=== PATIENT | female | born 1990 | race Caucasian/White ===

== ENCOUNTER → 2019-10-04 17:27 | Outpatient (CLI) | payer OTHER, SELFPAY ==
[2019-10-11 07:41] LABS: Neisseria gonorrhoeae, NAA Negative (Negative)
== END ==
PROVIDERS: Visit Provider Physician Assistant
DX: A74.9 Chlamydial infection, unspecified (principal)
CPT/HCPCS: 87491; 87591

== ENCOUNTER 2019-11-08 18:37 | Emergency (ER) | payer OTHER, SELFPAY ==
[2019-11-08 18:56] VITALS: BP 132/97; PULSE 74; RESP 20; TEMP 36.7; O2SAT 100; BMI 19.5
--- NOTE | 2019-11-08 19:23 | HMH.EDUTC ---
[facility] [place] Disposition Clinical Impression: Swelling of both lips Disposition: Home, Self-Care Condition on Discharge: Good Additional Instructions: Follow up later this week for lab results Prescriptions: Clotrimazole [Lotrimin 1% Cream 15gm tube] 15 gm TP TID 10 Days #15 tube Transmission Status: Pending to [id number] Referrals: Corwin Duke MD [Primary Care Provider] - Time of Disposition: 19:27 Medical Decision Making - Hany Inquiry Pt receiving controlled substance: No Vital Signs: 11/08/19 18:56 Temperature 98.1 F Temperature Source Oral Pulse Rate [Right Brachial] 74 Respiratory Rate 20 Blood Pressure [Right Arm] 132/97 H Blood Pressure Mean [Right Arm] 108 Blood Pressure Source [Right Arm] Automatic Cuff Blood Pressure Position [Right Arm] Sitting 02 Sat by Pulse Oximetry 100 Oxygen Delivery Method Room Air Orders (Tests/Meds): ORDERS Category Date Time Status 25-OH Vitamin D, Total Stat Lab 11/08/19 18:56 Ordered CBC [Complete Blood Count Auto Diff] Stat Lab 11/08/19 18:56 Ordered Comprehensive Metabolic Panel Stat Lab 11/08/19 18:56 Ordered Thyroid Stimulating Hormone Stat Lab 11/08/19 18:56 Ordered Vitamin B1 Stat Lab 11/08/19 18:56 Ordered Vitamin B12 Stat Lab 11/08/19 18:56 Ordered Vitamin B6 Stat Lab 11/08/19 18:56 Ordered [facility] HPI - General Stated complaint: Poss allergic reaction Time Seen by Provider: 11/08/19 19:00 Mode of Arrival: Ambulatory Source of Information: Patient Limitations: No Limitations Description of Symptoms (Recalled from Triage Doc. by RN): PATIENT C/O SWELLING AND PAIN TO LIPS FOR SEVERAL WEEKS, AND NOT FEELING WELL AND SORE THROAT ON AND OFF OVER THE WEEKEND HEENT Symptoms (Recalled from RN notes): Yes Resp Symptoms (Recalled from RN notes): No Skin Symptoms (Recalled from RN notes): No MS Symptoms (Recalled from RN notes): No Functional Status (Recalled from RN notes): WNL - History of Present Illness Provider Complaint: Patient has had swelling, soreness, cracking of lips for the past few weeks. Also feels rundown and tired. Wanders about fungal infection of lips because daughter recently treated for ringworm. Has tried steroid cream, different chapsticks, Vaseline without relief. No new exposures, medicines, or foods. Onset (ago): week(s) (3) Location: mouth Relieving factors: none Exacerbating factors: none Associated symptoms: denies other symptoms Treatments prior to arrival: none - Related Data Previous Rx's Medication Instructions Recorded azithromycin 500 mg tablet 500 mg PO DAILY 1 Days #2 tab 10/04/19 fluconazole 150 mg tablet 150 mg PO Q3D 0 Days #2 tab 10/05/19 sumatriptan succinate 25 mg tablet 25 mg PO Q2H PRN #9 tab 10/26/19 Clotrimazole [Lotrimin 1% Cream 15 gm TP TID 10 Days #15 tube 11/08/19 15gm tube] Allergies Allergy/AdvReac Type Severity Reaction Status Date / Time Sulfa (Sulfonamide Allergy Intermediate I-RASH Verified 10/04/19 15:25 Antibiotics) [SULFA (SULFONAMIDE ANTIBIOTICS)] - Worker's Comp Is this a Worker's Comp case?: No [facility] History - Hepatitis A Screen Drug use history?: No High risk sexual behaviors?: No History of sexually transmitted infection?: No Currently employed?: No Childcare worker?: No Do you have indoor plumbing?: Yes Do you have electricity?: Yes Attestation statement:: This patient has been screened for Hepatitis A risk factors. I have reviewed the patient's past medical history: Yes Medical History: Reports:: Migraine Denies:: Diabetes Mellitus Type 1, Diabetes Mellitus Type 2, Hypertension Other Surgeries: Yes: No Previous Surgery, Other Amputation: No Fractures: No Comment: wisdom teeth - Social History Smoking Status: Never smoker Alcohol Intake: never Substance Use Type: denies use Occupational Status: other Housing: house Household Members: family Family Hx:: Non-contributory ROS Obtained: Yes All systems r
[2019-11-08 19:37] LABS: Basophils % 0.8 % (0.1-2.0); Eosinophils # 0.1 K/mm3 (0.0-0.4); Eosinophils % 2.9 % (0.1-12.0); Hematocrit 39.8 % (37.0-47.0); Hemoglobin 13.6 g/dL (12.2-16.2); Lymphocytes # 1.7 K/mm3 (0.7-4.5); Lymphocytes % 40.2 % (10-50); Mean Corpuscular HGB Conc 34.2 g/dL (31.8-35.4); Mean Corpuscular Hemoglobin 33.3 pg (27.0-31.2); Mean Corpuscular Volume 97.3 fl (81-99); Monocytes # 0.3 K/mm3 (0.1-1.0); Monocytes % 5.8 % (1.7-9.3); Neutrophils # 2.2 K/mm3 (1.8-7.8); Neutrophils % 50.3 % (37.0-80.0); Platelet Count 244 K/mm3 (142-424); Red Blood Count 4.09 M/mm3 (4.20-5.40); Red Cell Distribution Width 12.6 % (11.5-17.5); White Blood Count 4.3 K/mm3 (4.8-10.8)
[2019-11-08 19:49] LABS: Alanine Aminotransferase 39 U/L (12-78); Albumin Level 4.2 g/dl (3.5-5.0); Albumin/Globulin Ratio 1.2 (1.1-1.8); Alkaline Phosphatase 44 U/L (38-126); Anion Gap 13.9 mEq/L (5-15); Aspartate Amino Transferase 44 U/L (14-36); Bilirubin,Total 0.2 mg/dl (0.2-1.3); Blood Urea Nitrogen 10 mg/dl (7-17); Calcium 8.9 mg/dl (8.4-10.2); Carbon Dioxide 26 mmol/L (22.0-30.0); Chloride 105 mmol/L (98-107); Creatinine Clearance Estimated 93 mL/min (50-200); Estimated Glomerular Filt Rate 85 ml/min (>60); GFR (African American) 103 ML/MIN (>60); Globulin 3.6 g/dL (1.3-3.2); Glucose 75 mg/dl (74-100); Potassium 3.9 mmoL/L (3.5-5.1); Sodium 141 mmol/L (136-145); Total Protein,Serum 7.8 g/dl (6.3-8.2)
[2019-11-08 20:06] LABS: 25-OH Vitamin D, Total 60.1 ng/mL (30-100)
[2019-11-08 20:09] VITALS: BP 132/97; PULSE 74; RESP 20; TEMP 36.7; O2SAT 100
[2019-11-10 08:57] LABS: Vitamin B12 448 pg/mL (232-1245)
[2019-11-12 06:18] LABS: Vitamin B1 125.5 nmol/L (66.5-200.0)
[2019-11-15 09:35] LABS: Vitamin B6 17.2 ug/L (2.0-32.8)
== END 2019-11-08 20:13 | disposition home or self-care (01) ==
PROVIDERS: Emergency Provider Physician Assistant; PCP Emergency Medicine
DX: R22.0 Localized swelling, mass and lump, head (principal); G43.709 Chronic migraine without aura, not intractable, without status migrainosus; Z88.2 Allergy status to sulfonamides
CPT/HCPCS: 80053; 82306; 82607; 84207; 84425; 84443; 85025; 99201

== ENCOUNTER 2019-11-11 19:57 | Emergency (ER) | payer OTHER, SELFPAY ==
[2019-11-11 20:14] VITALS: BP 125/87; PULSE 87; RESP 19; TEMP 36.7; O2SAT 100; BMI 18.9
--- NOTE | 2019-11-11 20:16 | HMH.EDUTC ---
[facility] [place] Disposition Clinical Impression: Strep pharyngitis Disposition: Home, Self-Care Condition on Discharge: Good Instructions: DI for Strep Throat Referrals: Corwin Duke MD [Primary Care Provider] - Time of Disposition: 20:18 Medical Decision Making - Hnay Inquiry Pt receiving controlled substance: No - Lab Data Lab results reviewed: Yes: I reviewed the patient's lab results. [facility] [place] HPI - General Stated complaint: sore throat headaches chills Time Seen by Provider: 11/11/19 20:17 - History of Present Illness Provider Complaint: Headache, sore throat, fever, chills X 2 days. Nephew has strep. Location: mouth Relieving factors: none Exacerbating factors: none Associated symptoms: fever/chills Treatments prior to arrival: none - Related Data Previous Rx's Medication Instructions Recorded azithromycin 500 mg tablet 500 mg PO DAILY 1 Days #2 tab 10/04/19 fluconazole 150 mg tablet 150 mg PO Q3D 0 Days #2 tab 10/05/19 sumatriptan succinate 25 mg tablet 25 mg PO Q2H PRN #9 tab 10/26/19 Clotrimazole [Lotrimin 1% Cream 15 gm TP TID 10 Days #15 tube 11/08/19 15gm tube] Allergies Allergy/AdvReac Type Severity Reaction Status Date / Time Sulfa (Sulfonamide Allergy Intermediate I-RASH Verified 10/04/19 15:25 Antibiotics) [SULFA (SULFONAMIDE ANTIBIOTICS)] [facility] History - Hepatitis A Screen Attestation statement:: This patient has been screened for Hepatitis A risk factors. I have reviewed the patient's past medical history: Yes Medical History: Reports:: Migraine Denies:: Diabetes Mellitus Type 1, Diabetes Mellitus Type 2, Hypertension Other Surgeries: Yes: No Previous Surgery, Other Amputation: No Fractures: No Comment: wisdom teeth - Social History Smoking Status: Never smoker Alcohol Intake: never Substance Use Type: denies use Occupational Status: other Housing: house Household Members: family Family Hx:: Non-contributory ROS Obtained: Yes All systems reviewed & no additional complaints - Constitutional Constitutional: Reports body ache, Reports chills, Reports fatigue, Reports fever(s) - ENT Ears, Nose, Mouth, and Throat: Reports sore throat Physical Exam - General General appearance: alert, in no apparent distress - Head Head exam: atraumatic, normocephalic, normal inspection - Eye Eye exam: Present: normal appearance, PERRL, EOMI - ENT ENT exam: Present: normal exam, normal oropharynx, mucous membranes moist, TM's normal bilaterally, normal external ear exam - Expanded ENT Exam Throat exam: Present: tonsillar erythema, tonsillomegaly, tonsillar exudate - Neck Neck exam: Present: normal inspection, full ROM, trachea midline. Absent: meningismus, lymphadenopathy - Chest Chest inspection: Present: normal inspection, symmetric chest wall rise. Absent: tenderness - Respiratory Respiratory exam: Present: normal lung sounds bilaterally. Absent: respiratory distress - Cardiovascular Cardiovascular exam: Present: regular rate, normal rhythm. Absent: JVD - Abdominal Exam Abdominal exam: Present: soft, normal bowel sounds. Absent: distention, tenderness, guarding - Extremities Exam Extremities exam: Present: normal inspection, full ROM, normal capillary refill. Absent: calf tenderness - Back Exam Back exam: Present: normal inspection. Absent: tenderness - Neurological Exam Neurological exam: Present: alert, oriented X3 - Psychiatric Psychiatric exam: Present: normal affect, normal mood - Skin Skin exam: Present: warm, dry, intact, normal color - Lymphatic Lymphatic Findings: no adenopathy
[2019-11-11 20:22] LABS: UTC Strep Screen (Rapid) Positive (Negative)
[2019-11-11 20:45] VITALS: BP 125/87; PULSE 87; RESP 19; TEMP 36.7; O2SAT 100
== END 2019-11-11 20:50 | disposition home or self-care (01) ==
PROVIDERS: Emergency Provider Physician Assistant; PCP Emergency Medicine
DX: J02.0 Streptococcal pharyngitis (principal); G43.709 Chronic migraine without aura, not intractable, without status migrainosus; Z88.2 Allergy status to sulfonamides
CPT/HCPCS: 87880; 96372; 99202; J0561

== ENCOUNTER 2019-11-26 18:53 | Emergency (ER) | payer OTHER, SELFPAY ==
[2019-11-26 19:02] VITALS: BP 116/80; PULSE 85; RESP 18; O2SAT 96; BMI 18.8
--- NOTE | 2019-11-26 19:14 | HMH.EDUTC ---
[facility] [place] Clinical Impression: Fever blister Disposition: Home, Self-Care Condition on Discharge: Good Instructions: Acyclovir, DI for Cold Sores, Cold Sores Additional Instructions: Take medication as prescribed *Follow up with Dermatology as scheduled, you may call to see if they can get you in sooner Follow up with Family Doctor if no improvement or any worsening of symptoms Straight to ER if any life threatening symptoms Prescriptions: Acyclovir [Zovirax 400mg tablet] 400 mg PO TID 7 Days #21 tab Transmission Status: Received by [id number] Referrals: Corwin Duke MD [Primary Care Provider] - As needed Time of Disposition: 19:38 Medical Decision Making - Hany Inquiry Pt receiving controlled substance: No Hany was queried for this patient: No Vital Signs: 11/26/19 19:02 Pulse Rate [Radial] 85 Respiratory Rate 18 Blood Pressure [Right Arm] 116/80 Blood Pressure Mean [Right Arm] 92 Blood Pressure Source [Right Arm] Automatic Cuff Blood Pressure Position [Right Arm] Sitting 02 Sat by Pulse Oximetry 96 Oxygen Delivery Method Room Air Orders (Tests/Meds): ED MEDICATIONS Discontinued Medications Generic Name Dose Route Start Last Admin Trade Name Freq PRN Reason Stop Dose Admin Acyclovir 400 mg 11/26/19 19:22 Zovirax 400mg Tablet PO 11/26/19 19:23 ONCE ONE [facility] [place] HPI - General Stated complaint: alergic reaction arounds lip and mouth Time Seen by Provider: 11/26/19 19:15 Mode of Arrival: Ambulatory Source of Information: Patient Limitations: No Limitations Description of Symptoms (Recalled from Triage Doc. by RN): possible allergic reaction to something. States she has been seen before. Can't get into dermatalogy. HEENT Symptoms (Recalled from RN notes): No Resp Symptoms (Recalled from RN notes): No Skin Symptoms (Recalled from RN notes): Yes MS Symptoms (Recalled from RN notes): No Functional Status (Recalled from RN notes): wnl - History of Present Illness Provider Complaint: Patient states that she has been seen multiple times for breaking out with blister like lesions around her mouth States that she was given cream and she has been using the cream but it hasnt helped and she has been having blister like lesions around her lower lip and one on her upper lip that has got worse and hurts when she touches it - Related Data Previous Rx's Medication Instructions Recorded sumatriptan succinate 25 mg tablet 25 mg PO Q2H PRN #9 tab 10/26/19 amoxicillin 875 mg-potassium 1 tab PO BID #14 tab 11/14/19 clavulanate 125 mg tablet Acyclovir [Zovirax 400mg tablet] 400 mg PO TID 7 Days #21 tab 11/26/19 Allergies Allergy/AdvReac Type Severity Reaction Status Date / Time Sulfa (Sulfonamide Allergy Intermediate I-RASH Verified 11/14/19 13:31 Antibiotics) [SULFA (SULFONAMIDE ANTIBIOTICS)] - Worker's Comp Is this a Worker's Comp case?: No [facility] History - Hepatitis A Screen Drug use history?: No High risk sexual behaviors?: No History of sexually transmitted infection?: No Currently employed?: No Childcare worker?: No Do you have indoor plumbing?: Yes Do you have electricity?: Yes Attestation statement:: This patient has been screened for Hepatitis A risk factors. I have reviewed the patient's past medical history: Yes Medical History: Reports:: Migraine Denies:: Diabetes Mellitus Type 1, Diabetes Mellitus Type 2, Hypertension Other Surgeries: Yes: No Previous Surgery, Other Amputation: No Fractures: No Comment: wisdom teeth - Social History Smoking Status: Never smoker Alcohol Intake: never Substance Use Type: denies use Occupational Status: employed Housing: house Household Members: family Family Hx:: Non-contributory ROS Obtained: Yes All systems reviewed & no additional complaints, Yes Systems reviewed as appropriate & no additional complaints - Constitutional Constitutional: Reports system reviewed and no additi
[2019-11-26 19:48] VITALS: BP 116/80; PULSE 85; RESP 18; TEMP 36.7; O2SAT 96
== END 2019-11-26 19:49 | disposition home or self-care (01) ==
PROVIDERS: Emergency Provider Nurse Practitioner; PCP Emergency Medicine
DX: B00.1 Herpesviral vesicular dermatitis (principal); G43.709 Chronic migraine without aura, not intractable, without status migrainosus; Z88.2 Allergy status to sulfonamides
CPT/HCPCS: 99201

== ENCOUNTER 2019-12-18 23:40 | Emergency (ER) | payer OTHER, SELFPAY ==
[2019-12-18 23:52] VITALS: BP 105/54; PULSE 120; RESP 16; TEMP 37.1; O2SAT 98; BMI 19.3
[2019-12-19 00:13] LABS: Microscopic, Urine URINE MICROSCOPIC (MICROSCOPIC)
--- NOTE | 2019-12-19 00:16 | HMH.EDNVD ---
ED Disposition Clinical Impression: Gastroenteritis Disposition: Home, Self-Care Condition on Discharge: Good Instructions: DI for Diarrhea and Traveler's Diarrhea -- Adult Additional Instructions: fluids and see pcp for follow up Referrals: Corwin Duke MD [Primary Care Provider] - - Critical Care Critical Care Time: No Attestation: On 12/18/19, the high probability of a clinically significant, sudden or life threatening deterioration of the following system(s) required my full and direct attention, intervention and personal management. The time I documented below is in addition to time spent performing reported procedures but includes the following listed in this critical care notation. Medical Decision Making - Medical Records Medical records reviewed: Yes: I reviewed the patient's medical records. - Hany Inquiry Pt receiving controlled substance: No Vital Signs: 12/18/19 23:52 12/19/19 01:03 12/19/19 01:17 Temperature 98.8 F Temperature Source Oral Pulse Rate [Right Brachial] 120 H 110 H 92 H Respiratory Rate 16 16 18 Blood Pressure [Right Arm] 105/54 L 92/43 L 100/61 L Blood Pressure Mean [Right Arm] 71 59 74 Blood Pressure Source [Right Arm] Automatic Cuff Automatic Cuff Blood Pressure Position [Right Arm] Sitting Sitting 02 Sat by Pulse Oximetry 98 97 97 Oxygen Delivery Method Room Air Room Air Room Air 12/19/19 01:42 12/19/19 02:29 Temperature Temperature Source Pulse Rate [Right Brachial] 90 93 H Respiratory Rate 15 Blood Pressure [Right Arm] 99/70 L 99/66 L Blood Pressure Mean [Right Arm] 79 77 Blood Pressure Source [Right Arm] Automatic Cuff Automatic Cuff Blood Pressure Position [Right Arm] Sitting Sitting 02 Sat by Pulse Oximetry 97 98 Oxygen Delivery Method Room Air Room Air - Lab Data Lab results reviewed: Yes: I reviewed the patient's lab results. Lab Results 12/18/19 23:56: Urine Color Yellow, Urine Appearance Clear, Urine pH 6.5, Ur Specific Mcdermott 1.025, Urine Protein Trace, Urine Glucose (UA) Negative, Urine Ketones Trace, Urine Blood Negative, Urine Nitrate Negative, Urine Bilirubin Negative, Urine Urobilinogen 1.0, Ur Leukocyte Esterase Negative, Urine WBC 5-10, Ur Squamous Epith Cells 10-20, Ur Renal Epithelial Cell Occasional, Amorphous Sediment 1+, Urine Mucus 2+ 12/18/19 23:56: WBC 5.9, RBC 4.24, Hgb 14.1, Hct 40.4, MCV 95.2, MCH 33.3 H, MCHC 34.9, RDW 13.1, Plt Count 249, MPV 7.6, Neut % (Auto) 82.3 H, Lymph % (Auto) 13.8, [place] % (Auto) 1.6 L, Eos % (Auto) 2.2, Baso % (Auto) 0.1, Neut # (Auto) 4.9, Lymph # (Auto) 0.8, [place] # (Auto) 0.1, Eos # (Auto) 0.1, Baso # (Auto) 0.0 12/18/19 23:56: Sodium 138, Potassium 3.3 L, Chloride 101, Carbon Dioxide 25, Anion Gap 15.3 H, BUN 10, Creatinine 0.80, Estimated Creat Clear 89, Estimated GFR 85, Est GFR ( Amer) 103, Glucose 106 H, Calcium 8.6, Total Bilirubin 0.5, AST 42 H, ALT 24, Alkaline Phosphatase 64, Total Protein 7.9, Albumin 4.1, Globulin 3.8 H, Albumin/Globulin Ratio 1.1, Amylase 64, Lipase 51 12/18/19 23:56: SARS-CoV-2 IgG Ab (Rapid) Negative, SARS-CoV-2 IgM Ab (Rapid) Negative 12/18/19 23:56: Urine HCG, Qual Negative 12/19/19 00:15: Influenza Type A Ag Negative, Influenza Type B Ag Negative 12/19/19 00:15: Group A Strep Rapid Negative Result diagrams: 12/18/19 23:56 12/18/19 23:56 Orders (Tests/Meds): ED MEDICATIONS Generic Name Dose Route Start Last Admin Trade Name Freq PRN Reason Stop Dose Admin Sodium Chloride 1,000 mls @ 999 mls/hr 12/19/19 00:15 12/19/19 00:48 Sod Chlor 0.9% 1000ml Bag IV 12/19/19 01:15 999 mls/hr .Q1H1M NEHAL Administration Sodium Chloride 8 ml 12/19/19 00:05 12/19/19 00:48 Sodium Chloride 0.9% 10ml Vial IV 01/18/20 00:04 8 ml NEEDED PRN Administration dilute pepcid Discontinued Medications Generic Name Dose Route Start Last Admin Trade Name Freq PRN Reason Stop Dose Admin Diatrizoate Meglum/Diatrizoate Sod 30 ml 12/19/19 00:1
[2019-12-19 00:18] LABS: Basophils % 0.1 % (0.1-2.0); Eosinophils # 0.1 K/mm3 (0.0-0.4); Eosinophils % 2.2 % (0.1-12.0); Hematocrit 40.4 % (37.0-47.0); Hemoglobin 14.1 g/dL (12.2-16.2); Lymphocytes # 0.8 K/mm3 (0.7-4.5); Lymphocytes % 13.8 % (10-50); Mean Corpuscular HGB Conc 34.9 g/dL (31.8-35.4); Mean Corpuscular Hemoglobin 33.3 pg (27.0-31.2); Mean Corpuscular Volume 95.2 fl (81-99); Mean Platelet Volume 7.6 fl (7.4-10.4); Monocytes # 0.1 K/mm3 (0.1-1.0); Monocytes % 1.6 % (1.7-9.3); Neutrophils # 4.9 K/mm3 (1.8-7.8); Neutrophils % 82.3 % (37.0-80.0); Platelet Count 249 K/mm3 (142-424); Red Blood Count 4.24 M/mm3 (4.20-5.40); Red Cell Distribution Width 13.1 % (11.5-17.5); White Blood Count 5.9 K/mm3 (4.8-10.8)
--- NOTE | 2019-12-19 00:19 | CT_ITS ---
PROCEDURE: CT ABDOMEN PELVIS W CON CLINICAL INDICATION: belly pain Nausea and vomiting with diarrhea with generalized abdominal pain with fever COMPARISON: CT ABDPELW CT abdomen pelvis w con from 09/19/2018 TECHNIQUE: IV Contrast: 75ML OPTIRAY 350 Oral Contrast None Axial images obtained with sagittal and coronal reformats. All CT scans at the facility use one or more dose reduction, viz: automated exposure control, ma/kV adjustment per patient size (including targeted exams where dose is matched to indication, i.e. head), or iterative reconstruction technique. FINDINGS: LOWER THORAX: There are mild atelectatic changes in the right lung base in the right middle lobe. ABDOMEN & PELVIS: There are low-density changes in the periportal region suggesting periportal edema. The spleen, adrenal glands, and pancreas have an unremarkable appearance. Unremarkable appearing kidneys. There are few scattered air-fluid levels within the colon and small bowel. The cecum lies to the left of midline with suggestion of some mild thickening of the terminal ileum.. No evidence of appendicitis. No obvious pelvic mass or abnormal fluid collection. No acute bony anomalies. There is a small umbilical hernia which contains fat. IMPRESSION: 1. Periportal edema. 2. Air-fluid levels within large and small bowel which may be seen with enterocolitis/diarrhea disease. Dictated by: Carlos Vernon MD 12/19/2019 08:36 Carlos Vernon MD in [place] 12/19/2019 08:36
[2019-12-19 00:28] LABS: Appearance,Urine CLEAR (Clear); Blood, Urine Negative (Negative); Color,Urine YELLOW (Yellow); Glucose,Urine (UA) Negative (Negative); Ketones,Urine TRACE (Negative); Leukocyte Esterase,Urine Negative (Negative); Nitrate,Urine Negative (Negative); PH,Urine 6.5 (5.0-8.5); Protein,Urine TRACE (Negative); Specific Gravity, Urine 1.025 (1.005-1.030)
[2019-12-19 00:29] LABS: Urine Pregnancy, HCG Qual. Negative (Negative)
[2019-12-19 00:30] LABS: Alanine Aminotransferase 24 U/L (12-78); Albumin Level 4.1 g/dl (3.5-5.0); Albumin/Globulin Ratio 1.1 (1.1-1.8); Alkaline Phosphatase 64 U/L (38-126); Amylase 64 U/L (30-110); Anion Gap 15.3 mEq/L (5-15); Aspartate Amino Transferase 42 U/L (14-36); Bilirubin,Total 0.5 mg/dl (0.2-1.3); Blood Urea Nitrogen 10 mg/dl (7-17); Calcium 8.6 mg/dl (8.4-10.2); Carbon Dioxide 25 mmol/L (22.0-30.0); Chloride 101 mmol/L (98-107); Creatinine Clearance Estimated 89 mL/min (50-200); Estimated Glomerular Filt Rate 85 ml/min (>60); GFR (African American) 103 ML/MIN (>60); Globulin 3.8 g/dL (1.3-3.2); Glucose 106 mg/dl (74-100); Lipase 51 U/L (23-300); Potassium 3.3 mmoL/L (3.5-5.1); Sodium 138 mmol/L (136-145); Total Protein,Serum 7.9 g/dl (6.3-8.2)
[2019-12-19 00:32] LABS: Bilirubin,Urine Negative (Negative)
[2019-12-19 00:33] LABS: Amorphous Sediment,Urine 1+ /lpf; Mucus,Urine 2+ /lpf; Renal Epithelial Cells,Urine Occasional #/lpf (0)
[2019-12-19 00:43] LABS: Coronavirus 19 IgG Antibody Negative (Negative)
[2019-12-19 00:44] LABS: Coronavirus 19 IgM Antibody Negative (Negative)
--- NOTE | 2019-12-19 00:50 | PC.NURSE ---
pt finished po contrast at this time
[2019-12-19 01:00] LABS: Strep Scrn Group A (Rapid) Negative (Negative)
[2019-12-19 01:03] VITALS: BP 92/43; PULSE 110; RESP 16; O2SAT 97
[2019-12-19 01:17] VITALS: BP 100/61; PULSE 92; RESP 18; O2SAT 97
[2019-12-19 01:42] VITALS: BP 99/70; PULSE 90; RESP 15; O2SAT 97
--- NOTE | 2019-12-19 02:03 | PC.NURSE ---
Patient gone to CT at this time
--- NOTE | 2019-12-19 02:18 | PC.NURSE ---
Patient back from CT at this time
[2019-12-19 02:29] VITALS: BP 99/66; PULSE 93; O2SAT 98
[2019-12-19 02:53] VITALS: BP 99/62; PULSE 90; RESP 16; TEMP 37; O2SAT 98
== END 2019-12-19 03:10 | disposition home or self-care (01) ==
PROVIDERS: Emergency Provider Emergency Medicine; PCP Emergency Medicine
DX: K52.9 Noninfective gastroenteritis and colitis, unspecified (principal); G43.709 Chronic migraine without aura, not intractable, without status migrainosus
CPT/HCPCS: 74177; 80053; 81001; 81025; 82150; 83690; 85025; 86328; 87275; 87276; 87430; 96365; 96375; 99284; J2405; Q9967

== ENCOUNTER → 2020-01-23 14:40 | Outpatient (CLI) | payer OTHER, SELFPAY ==
[2020-01-25 09:22] LABS: HIV Screen 4th Generation wRfx Non Reactive (Non Reactive)
[2020-01-25 10:27] LABS: Hep A Ab, IgM Negative (Negative); Hepatitis B Core Antibody IgM Negative (Negative); Hepatitis B Surface Antigen Negative (Negative)
[2020-01-25 10:41] LABS: HSV 1 IgG, Type Spec 1.07 index (0.00-0.90); HSV 2 IgG, Type Spec <0.91 index (0.00-0.90); Hepatitis C Antibody <0.1 s/co ratio (0.0-0.9)
[2020-01-25 14:47] LABS: Rapid Plasma Reagin Ab Titer Non Reactive (NonRea<1:1)
[2020-01-26 11:12] LABS: Neisseria gonorrhoeae, NAA Negative (Negative)
== END ==
PROVIDERS: Visit Provider Nurse Practitioner Obstetrics & Gynecology
DX: Z72.51 High risk heterosexual behavior (principal)
CPT/HCPCS: 36415; 80074; 86592; 86695; 86703; 86790; 87491; 87591; G0432

== ENCOUNTER → 2020-02-28 09:44 | Outpatient (CLI) | payer OTHER, SELFPAY ==
[2020-02-29 15:07] LABS: Covid-19 Nasal PCR Sendout Lex Positive
== END ==
PROVIDERS: PCP Emergency Medicine; Visit Provider Emergency Medicine
DX: Z20.828 Contact with and (suspected) exposure to other viral communicable diseases (principal); U07.1 COVID-19
CPT/HCPCS: U0004

== ENCOUNTER → 2020-06-04 16:47 | Outpatient (CLI) | payer OTHER, SELFPAY ==
[2020-06-04 17:35] LABS: Basophils # 0.1 K/mm3 (0-0.2); Basophils % 0.9 % (0.1-2.0); Eosinophils # 0.1 K/mm3 (0.0-0.4); Eosinophils % 1.6 % (0.1-12.0); Hematocrit 38.4 % (37.0-47.0); Hemoglobin 12.6 g/dL (12.2-16.2); Lymphocytes # 2.8 K/mm3 (0.7-4.5); Lymphocytes % 46.8 % (10-50); Mean Corpuscular HGB Conc 32.9 g/dL (31.8-35.4); Mean Corpuscular Volume 97.4 fl (81-99); Monocytes # 0.4 K/mm3 (0.1-1.0); Monocytes % 6.4 % (1.7-9.3); Neutrophils # 2.7 K/mm3 (1.8-7.8); Neutrophils % 44.3 % (37.0-80.0); Platelet Count 273 K/mm3 (142-424); Red Blood Count 3.95 M/mm3 (4.20-5.40); Red Cell Distribution Width 12.8 % (11.5-17.5); White Blood Count 6.1 K/mm3 (4.8-10.8)
[2020-06-04 18:29] LABS: Chloride 104 mmol/L (98-107); Potassium 4.2 mmoL/L (3.5-5.1); Sodium 139 mmol/L (136-145)
[2020-06-04 18:32] LABS: Anion Gap 12.2 mEq/L (5-15); Blood Urea Nitrogen 18 mg/dl (7-17); Calcium 9.3 mg/dl (8.4-10.2); Carbon Dioxide 27 mmol/L (22.0-30.0); Estimated Glomerular Filt Rate 85 ml/min (>60); GFR (African American) 103 ML/MIN (>60); Glucose 91 mg/dl (74-100)
[2020-06-04 19:38] LABS: Coronavirus 19 IgG Antibody Positive (Negative); Coronavirus 19 IgM Antibody Negative (Negative)
== END ==
PROVIDERS: Visit Provider Surgery
DX: Z01.818 Encounter for other preprocedural examination (principal); Z20.822 Contact with and (suspected) exposure to COVID-19; K42.9 Umbilical hernia without obstruction or gangrene
CPT/HCPCS: 36415; 80048; 85025; 86328

== ENCOUNTER 2020-06-06 05:53 | Day surgery (SDC) | payer OTHER, SELFPAY ==
[2020-06-01 09:16] VITALS: BMI 20.7
[2020-06-06] VITALS (9 sets, daily range): BP systolic 122–138; BP diastolic 77–91; PULSE 64–82; RESP 16–18; TEMP 36.1–36.5; O2SAT 94–100
[2020-06-06 06:24] LABS: HCG Qualitative, Serum Negative (Negative)
--- NOTE | 2020-06-06 06:48 | P.PN_ITS ---
[facility] Anesthesia Checklist - Structural Data Admitted From: Home Planned Operative Procedure/s: umb hernia repair Consent for Planned Operative Procedure(s) Verified: Yes - Additional verifications Anesthesia Reactions: No Hx Blood Transfusions: No Blood Transfusion Reaction: No - Airway Assessment C-Spine Mobility Assessed: Yes TMJ Mobility Assessed: Yes Dentition: Good Dentition - Neurological Assessment Level of Consciousness: Awake, Alert, Appropriate - Anesthesia Plan Anesthesia Risk discussed: Yes Anesthesia Plan: Verified ASA Class: I Anesthesia Type: General [facility] History I have reviewed the patient's past medical history: Yes Medical History: Reports:: Migraine Denies:: Cancer, Diabetes Mellitus Type 1, Diabetes Mellitus Type 2, Hypertension, Internal Pacemaker, MRSA, Seizures *Have you ever received a pneumonia vaccine?: No *Have you received a flu vaccine this season?: No Other Medical History: Denies: Blood Transfusion Reaction Anesthesia experience/problems:: none Other Surgeries: Yes: No Previous Surgery, Other. No: Pacemaker Amputation: No Fractures: No - *Social History Last grade of school completed: High school graduate Smoking Status: Never smoker Alcohol Intake: current Alcohol Intake Frequency:: a few times a week Substance Use Type: denies use *Occupational Status:: employed Housing: house Household Members: family, children *Travel in the last 8 weeks: None Family Hx:: Non-contributory, No significant family history
--- NOTE | 2020-06-06 07:12 | P.HP_ITS ---
HPI HPI: Patient is a pleasant 29-year-old female referred by Patti Samson for umbilical hernia. Patient states that with her second child she had noticed a bulge at the umbilical area. This became more prominent with subsequent . It has become symptomatic. She has some discomfort. 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 [facility] History I have reviewed the patient's past medical history: Yes Medical History: Reports:: Migraine Denies:: Cancer, Diabetes Mellitus Type 1, Diabetes Mellitus Type 2, Hypertension, Internal Pacemaker, MRSA, Seizures *Have you ever received a pneumonia vaccine?: No *Have you received a flu vaccine this season?: No Other Medical History: Denies: Blood Transfusion Reaction Anesthesia experience/problems:: none Other Surgeries: Yes: No Previous Surgery, Other. No: Pacemaker Amputation: No Fractures: No - *Social History Last grade of school completed: High school graduate Smoking Status: Never smoker Alcohol Intake: current Alcohol Intake Frequency:: a few times a week Substance Use Type: denies use *Occupational Status:: employed Housing: house Household Members: family, children *Travel in the last 8 weeks: None Family Hx:: Non-contributory, No significant family history Review of Systems - Review of Systems Review of systems:: pertinent systems reviewed and negative unless documented below Meds Home Medications Medication Instructions Recorded Confirmed Type Ubrogepant [Ubrelvy] 50 mg PO ONCE 06/06/20 06/06/20 History Allergies Allergy/AdvReac Type Severity Reaction Status Date / Time Sulfa (Sulfonamide Allergy Intermediate I-RASH Verified 06/06/20 06:14 Antibiotics) [SULFA (SULFONAMIDE ANTIBIOTICS)] Exam Vital signs and Labs for Last 24 Hours: Temp Pulse Resp BP Pulse Ox 97.3 F L 82 18 123/91 H 100 06/06/20 06:17 06/06/20 06:17 06/06/20 06:17 06/06/20 06:17 06/06/20 06:17 Laboratory Results - last 24 hr 06/06/20 06:13: Serum HCG, Qual Negative - *Routine HEENT Exam Head: Present: normocephalic Eye: Present: EOMI, PERRL ENT: Present: mucous membranes moist - *Routine Neck Exam Present: supple. Absent: lymphadenopathy - *Routine Respiratory Exam Present: CTA bilaterally - *Routine Cardiovascular Exam Present: RRR - *Routine Abdominal Exam Present: soft, normoactive bowel sounds. Absent: tenderness Comments: Palpable soft hernia at the umbilicus towards the superior aspect - *Routine Extremities Exam Absent: cyanosis, clubbing, edema - *Routine Skin Exam Present: warm. Absent: rash - *Routine Neurological Exam Present: alert, oriented X3 Results - Results Lab Results Last 24 Hours:: Laboratory Results - last 24 hr 06/06/20 06:13: Serum HCG, Qual Negative Assessment and Plan - Assessment and plan all Dx Assessment and Plan for all problems:: Open umbilical hernia repair
--- NOTE | 2020-06-06 08:00 | HMH.OPNOTE ---
Date of procedure: 06/06/20 Pre-op Diagnosis:: Umbilical hernia Post-op Diagnosis:: Same Procedure performed:: Open umbilical hernia repair with placement of small Bard Ventralex mesh Surgeon:: Osei Calloway MD MANAGER OF INTERNAL:: Other Anesthesia: GETA Estimated blood loss (mL): 15 Clinical Note:: Patient is a pleasant 29-year-old female referred by Patti Samson for umbilical hernia. Patient states that with her second child she had noticed a bulge at the umbilical area. This became more prominent with subsequent . It has become symptomatic. She has some discomfort. 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 Operative findings:: She had a small hernia defect measuring about 8 mm with herniated fat. Operative note:: Consent was obtained and patient was taken to the operating room. She was positioned in a supine position. General anesthesia was induced the endotracheal tube. Abdomen was prepped and draped in the standard surgical fashion. Hernia was palpable towards the superior aspect of the umbilicus. Supraumbilical incision was made. Dissection was carried down through subcutaneous tissues. Herniated fat was encountered. This was dissected free from the umbilical subdermis and surrounding fascial edges. It was ultimately able to be reduced. The underlying fascia was cleaned free. Defect measured about 8 mm. Due to the small size of the defect plan was made for repair with small sized Bard Ventralex mesh. This was brought onto the field. It was rolled and inserted in to the peritoneal cavity posterior to the fascia. It was oriented and unfurled. The tails of the mesh were sutured superiorly and inferiorly to the fascial edges with 2-0 Prolene. The tails of the mesh were then cut flush with the fascia. Fascia was closed over the mesh with several interrupted 0 Ethibond sutures. Local anesthetic was infiltrated. Umbilical subdermis was reapproximated to the fascia with a single 2-0 Vicryl suture. Skin was closed with 4-0 Monocryl in a subcuticular fashion. Clean dry sterile dressing was applied. Condition: stable Disposition: PACU Specimens:: None Complications:: None immediately apparent
--- NOTE | 2020-06-06 08:13 | HMH.ANESI ---
[facility] Anesthesia Record Part I Intake, IV Amount: 1,600 Estimated blood loss (mL): 10 Urine output (mL): 0 Blood Products used (#): none Blood Pressure: 138/91 SaO2: 94 Pulse Rate: 67 Respiratory Rate: 18 Temperature: 97 F Patient is:: Awake, Drowsy
[2020-06-06 08:33] LABS: POC Glucose,Bedside 81 (70-110)
--- NOTE | 2020-06-07 10:58 | HMH.ANESII ---
[facility] [place] Anesthesia Record Part II Discharge Time: 08:38 Destination: Surgical Day Care (OP Surgery) PACU nurse assessment reviewed?: Yes Patient Condition:: Good Anesthesia Complications:: None Swallowing reflex intact?: Yes Cyanosis?: No Blood Pressure: 134/78 Pulse Rate: 76 Temperature: 97 F Mental Status: Alert & Oriented Pain level:: 0 Nausea and/or vomitting:: None Intake, IV Amount: 0
[2020-06-07 10:59] VITALS: BP 134/78; PULSE 76; TEMP 36.1
== END 2020-06-06 09:05 | disposition home or self-care (01) ==
LOC: OR 05:54
PROVIDERS: PCP Physician Assistant; Visit Provider Surgery
PROC: (CPT 49585; principal; 2020-06-06 07:30)
DX: K42.9 Umbilical hernia without obstruction or gangrene (principal); Z88.2 Allergy status to sulfonamides; G43.909 Migraine, unspecified, not intractable, without status migrainosus
CPT/HCPCS: 49585; 82962; 84703; 96374; C1781; J0330; J2405

== ENCOUNTER 2020-06-19 20:21 | Emergency (ER) | payer OTHER, SELFPAY ==
[2020-06-19 20:50] VITALS: BP 116/91; PULSE 78; RESP 19; TEMP 36.9; O2SAT 98; BMI 20.7
[2020-06-19 21:08] LABS: Apearance,Urine Clear (Clear); Color,Urine Yellow (Yellow)
[2020-06-19 21:09] LABS: Bilirubin,Urine Negative (Negative); Blood, Urine Negative (Negative); Glucose,Urine (UA) Negative (Negative); Ketones,Urine Negative (Negative); Protein,Urine Negative (Negative); Specific Gravity, Urine 1.015 (1.005-1.030); UTC Leukocyte Esterase,Urine Trace (Negative); UTC Nitrate,Urine Negative (Negative); Urobilinogen,Urine 0.2 EU/dl (0.2)
--- NOTE | 2020-06-19 21:31 | HMH.EDUTC ---
[facility] Disposition Clinical Impression: UTI (urinary tract infection) Qualifiers: Urinary tract infection type: site unspecified Hematuria presence: without hematuria Qualified Code(s): N39.0 - Urinary tract infection, site not specified Disposition: Home, Self-Care Condition on Discharge: Good Instructions: Urinary Tract Infection, DI for Urinary Tract Infection (UTI) Additional Instructions: *Increase fluids. Water not Soda or Tea *Start antibiotic immediately and be sure to take as ordered for the FULL length of time although you should start to see improvement over the next 48 hours *Be SURE to follow up anytime for new or worsening symptoms with your family doctor. AND in 48 hours for urine culture results with your family doctor, if you do not have a doctor then you may call back to the [facility] for urine culture results and further treatment. We do recommend that you choose and establish care with a Primary Care Physician. AND follow up with them in 10-14 days to repeat UA to ensure infection is resolved and blood no longer present *Be sure to let your PCP know that we sent urine cultures from the [facility] so they can follow up to ensure that you area the on the correct antibiotic Call your doctor office and make appointment for 48 hours (2 days from today) to follow up and get the results of your urine culture and further treatment Follow up with your Family Doctor or Surgeon tomorrow if having any pain around surgical site Return if needed Straight to ER if any life threatening symptoms Prescriptions: cephALEXin [cephALEXin 500mg capsule*] 500 mg PO BID 3 Days #6 cap Transmission Status: [id number] Referrals: Patti Samson PA [Primary Care Provider] - Time of Disposition: 21:43 Medical Decision Making - Hany Inquiry Pt receiving controlled substance: No Hany was queried for this patient: No Vital Signs: 06/19/20 20:50 Temperature 98.4 F Temperature Source Oral Pulse Rate [Right Brachial] 78 Respiratory Rate 19 Blood Pressure [Right Arm] 116/91 H Blood Pressure Mean [Right Arm] 99 Blood Pressure Source [Right Arm] Automatic Cuff Blood Pressure Position [Right Arm] Sitting 02 Sat by Pulse Oximetry 98 Oxygen Delivery Method Room Air - Lab Data Lab results reviewed: Yes: I reviewed the patient's lab results. Lab Results 06/19/20 21:04: Urine Color Yellow, Urine Appearance Clear, Urine pH 6.0, Ur Specific [place] 1.015, Urine Protein Negative, Urine Glucose (UA) Negative, Urine Ketones Negative, Urine Blood Negative, Urine Nitrate Negative, Urine Bilirubin Negative, Urine Urobilinogen 0.2, Ur Leukocyte Esterase Trace Orders (Tests/Meds): ORDERS Category Date Time Status Urine Culture Stat Micro 06/19/20 21:04 Ordered Medical Decision Narrative: Due to burning with urination and feeling of pressure when she urinates patient started on Keflex and urine sent for Culture discussed transfer to ED and patient advised if she was still having pain and discomfort she would follow up with PCP in the am or Go straight to ER [facility] if pain worsens declines transfer at this time Discussed with Dr Duke and he spoke with patient and informed her to follow up in the office in the morning if she was having discomfort or pain and patient agreed [facility] HPI - General Stated complaint: pain abd Time Seen by Provider: 06/19/20 21:31 Mode of Arrival: Ambulatory Source of Information: Patient Limitations: No Limitations Description of Symptoms (Recalled from Triage Doc. by RN): PATIENT C/O LOWER ABDOMINAL PAIN. STATES SHE HAD HERNIA SURGERY 2 WEEKS AGO AND IS UNSURE IF PAIN IS RELATED TO THAT HEENT Symptoms (Recalled from RN notes): No Resp Symptoms (Recalled from RN notes): No Skin Symptoms (Recalled from RN notes): No MS Symptoms (Recalled from RN notes): No Functional Status (Recalled from RN notes): WNL - History of Present Illness Provider Complaint: Patient states that she had
[2020-06-19 21:43] VITALS: BP 116/91; PULSE 78; RESP 19; TEMP 36.9; O2SAT 98
== END 2020-06-19 21:45 | disposition home or self-care (01) ==
PROVIDERS: Emergency Provider Nurse Practitioner; PCP Physician Assistant
DX: N30.00 Acute cystitis without hematuria (principal); G43.709 Chronic migraine without aura, not intractable, without status migrainosus; Z88.2 Allergy status to sulfonamides
CPT/HCPCS: 81003; 87086; 99202; G0463

== ENCOUNTER → 2020-06-21 11:32 | Outpatient (CLI) | payer OTHER, SELFPAY ==
--- NOTE | 2020-06-21 12:03 | XR_ITS ---
PROCEDURE: XR ACUTE ABDOMEN SERIES CLINICAL INDICATION: abdl pain, swelling, s/p umbilical hernia repair COMPARISON: No exams were available for comparison FINDINGS: Frontal view of the chest shows no acute finding. Upright and supine views of the abdomen show a nonspecific bowel gas pattern. No intestinal obstruction or free air. No acute bony findings. IMPRESSION: No acute findings. Dictated by: Carlos Vernon MD 06/21/2020 16:27 Carlos Vernon MD in OV 06/21/2020 16:27
[2020-06-21 12:52] LABS: Basophils % 0.7 % (0.1-2.0); Eosinophils # 0.1 K/mm3 (0.0-0.4); Eosinophils % 2.2 % (0.1-12.0); Hemoglobin 13.6 g/dL (12.2-16.2); Lymphocytes # 1.9 K/mm3 (0.7-4.5); Lymphocytes % 33.8 % (10-50); Mean Corpuscular HGB Conc 34.1 g/dL (31.8-35.4); Mean Corpuscular Hemoglobin 32.9 pg (27.0-31.2); Mean Corpuscular Volume 96.5 fl (81-99); Monocytes # 0.3 K/mm3 (0.1-1.0); Monocytes % 5.3 % (1.7-9.3); Neutrophils # 3.2 K/mm3 (1.8-7.8); Platelet Count 258 K/mm3 (142-424); Red Blood Count 4.15 M/mm3 (4.20-5.40); Red Cell Distribution Width 12.4 % (11.5-17.5); White Blood Count 5.5 K/mm3 (4.8-10.8)
[2020-06-21 12:57] LABS: Chloride 107 mmol/L (98-107)
[2020-06-21 12:58] LABS: Potassium 4.2 mmoL/L (3.5-5.1); Sodium 139 mmol/L (136-145)
[2020-06-21 13:00] LABS: Blood Urea Nitrogen 14 mg/dl (7-17); Estimated Glomerular Filt Rate 74 ml/min (>60); GFR (African American) 90 ML/MIN (>60)
[2020-06-21 13:01] LABS: Alanine Aminotransferase 14 U/L (12-78); Albumin Level 4.3 g/dl (3.5-5.0); Albumin/Globulin Ratio 1.3 (1.1-1.8); Alkaline Phosphatase 50 U/L (38-126); Anion Gap 10.2 mEq/L (5-15); Aspartate Amino Transferase 28 U/L (14-36); Bilirubin,Total 0.4 mg/dl (0.2-1.3); Calcium 8.9 mg/dl (8.4-10.2); Carbon Dioxide 26 mmol/L (22.0-30.0); Globulin 3.4 g/dL (1.3-3.2); Glucose 89 mg/dl (74-100); Total Protein,Serum 7.7 g/dl (6.3-8.2)
== END ==
PROVIDERS: PCP Physician Assistant; Visit Provider Physician Assistant
DX: R10.9 Unspecified abdominal pain (principal)
CPT/HCPCS: 36415; 74021; 80053; 85025

== ENCOUNTER → 2021-01-21 16:32 | Outpatient (CLI) | payer OTHER, SELFPAY ==
[2021-01-24 03:03] LABS: Neisseria gonorrhoeae, NAA Negative (Negative)
== END ==
PROVIDERS: Visit Provider Nurse Practitioner Obstetrics & Gynecology
DX: R10.2 Pelvic and perineal pain (principal); Z72.51 High risk heterosexual behavior
CPT/HCPCS: 87491; 87591

== ENCOUNTER 2021-06-20 16:49 | Outpatient (RCR) | payer OTHER, SELFPAY ==
--- NOTE | 2021-06-20 17:44 | HMH.PTOPEV ---
PT Outpatient Evaluation Rehab PT Outpatient Evaluation Start: 06/20/21 17:34 Freq: Status: Active Protocol: Document 06/20/21 17:34 MARIPOSA (Rec: 06/20/21 17:44 MARIPOSA [id number]) Electronically Signed By Bienvenido Segundo, PT 06/20/21 17:34 Outpatient Therapy Subjective History Subjective History Patient is a 30 year old female presenting to outpatient PT with reports of chronic cervical spine pain with associated cervicogenic headaches. No recent imaging to report. Symptoms of insidious onset. No radicular symptoms to report. Comorbidities include hx of umbilical hernia. Chief Complaint Pain,Spasms Level of pain today (0-10) 3 Pain scale - at its best (0-10) 0 Pain scale - at its worst (0-10) 8 Cervical Eval Palpation Cervical Muscles R Cervical Paraspinal,L Cervical Paraspinal,R Upper Trapezius,L Upper Trapezius Cervical/Thoracic Palpation Findings Tenderness Posture Head/C-Spine Posture Sitting Position C-Spine Flattened Head/C-Spine Posture Standing Position C-Spine Flattened Flexibility Deficits Upper Trapezius Muscle Length (R) Mild Tightness,(L) Mild Tightness Pectoralis Minor Muscle Length (R) Mild Tightness,(L) Mild Tightness Passive Joint Mobility Cervical PIVM WNL: R OA L OA R AA L AA R C2/3 L C2/3 R C3/4 L C3/4 R C4/5 L C4/5 R C5/6 L C5/6 R C6/7 L C6/7 R C7/T1 L C7/T1 AROM Cervical Spine Extension Active Range of 66 Motion (degrees) Cervical Spine Flexion Active Range of 43 Motion (degrees) Cervical Spine Right Lateral Flexion 42 Active Range of Motion (degrees) Cervical Spine Left Lateral Flexion 66 Active Range of Motion (degrees) Cervical Spine Right Rotation Active 65 Range of Motion (degrees) Cervical Spine Left Rotation Active 60 Range of Motion (degrees) MMT Bilateral Deltoi
== END 2021-06-20 16:50 | disposition home or self-care (01) ==
LOC: PT 16:49
PROVIDERS: PCP Physician Assistant; Visit Provider Nurse Practitioner Family
DX: G44.86 Cervicogenic headache (principal); M54.2 Cervicalgia; G89.29 Other chronic pain; Z3A.18 18 weeks gestation of pregnancy
CPT/HCPCS: 97163

== ENCOUNTER 2021-10-08 08:32 | Emergency (ER) | payer OTHER, SELFPAY ==
[2021-10-08 08:35] VITALS: BP 113/75; PULSE 109; RESP 18; TEMP 36.6; O2SAT 98; BMI 23.6
--- NOTE | 2021-10-08 08:49 | HMH.EDUTC ---
[facility] Disposition Clinical Impression: Viral syndrome Disposition: Home, Self-Care Condition on Discharge: Good Instructions: Sore Throat Additional Instructions: *Monitor Temp, Over the counter Motrin or Tylenol as directed/as needed Tylenol every 4 hours and Motrin every 6 hours (as long as your family doctor has told you that you can take it) for fever or pain. and straight to ER if unable to lower temp less than 101.0 after medication given *Warm salt water gargles may help to soothe the throat *Throat Lozenges *Warm fluids like tea with honey may help to soothe the throat *Sleep elevated *Humidifier/Vaporizer Your throat swab was sent for culture. Those results are typically sent to your primary care. Be sure to follow up in 2-3 days with your family doctor/primary care physician if no improvement so they can review those result and treat if necessary. If you don?t have a primary care doctor, I recommend you get one but in the mean time, you will have to return to a walk in clinic Follow up IMMEDIATELY for new or worsening symptoms or no Noticeable improvement over the next 48-72 hours. 911 for difficulty breathing or swallowing You were tested for today for COVID19 your test result should be back in the next 24-48 hours, you may check your results on the [facility] My Health Portal Make sure to take your Vitamins Vit. C Vit D and Zinc if you can take them Referrals: Patti Samson PA [Primary Care Provider] - As needed Time of Disposition: 09:17 Medical Decision Making - Hany Inquiry Pt receiving controlled substance: No Hany was queried for this patient: No Vital Signs: 10/08/21 08:35 Temperature 97.8 F Temperature Source Oral Pulse Rate [Right Brachial] 109 H Respiratory Rate 18 Blood Pressure [Right Arm] 113/75 Blood Pressure Mean [Right Arm] 87 Blood Pressure Source [Right Arm] Automatic Cuff Blood Pressure Position [Right Arm] Sitting 02 Sat by Pulse Oximetry 98 Oxygen Delivery Method Room Air - Lab Data Lab results reviewed: Yes: I reviewed the patient's lab results. Lab Results 10/08/21 08:40: Group A Strep Rapid Negative Orders (Tests/Meds): ORDERS Category Date Time Status Strep Screen Confirmation Stat Micro 10/08/21 08:40 Received [facility] HPI - General Stated complaint: sore throat, bodyaches Time Seen by Provider: 10/08/21 08:49 Mode of Arrival: Ambulatory Source of Information: Patient Limitations: No Limitations Description of Symptoms (Recalled from Triage Doc. by RN): PATIENT C/O SORE THROAT, BODY ACHES, AND LEG PAIN SINCE THURSDAY. HER OLDEST CHILD HAS STREP HEENT Symptoms (Recalled from RN notes): Yes Resp Symptoms (Recalled from RN notes): No Skin Symptoms (Recalled from RN notes): No MS Symptoms (Recalled from RN notes): Yes Functional Status (Recalled from RN notes): WNL - History of Present Illness Provider Complaint: Patient states that she has been having sore throat, bodyaches, fatigue and chills since Thursday States that she is 35wks OB and her child recently tested positive for Strep throat States that she had some aches and charley horses in her calves over the weekend and they feel sore so today when she got up and didnt feel well she came in - Related Data Home Medications Medication Instructions Recorded Confirmed Aspirin [Aspirin 81mg chewable 81 mg PO DAILY 10/08/21 10/08/21 tab] Allergies Allergy/AdvReac Type Severity Reaction Status Date / Time Sulfa (Sulfonamide Allergy Intermediate I-RASH Verified 08/13/21 08:11 Antibiotics) [SULFA (SULFONAMIDE ANTIBIOTICS)] - Worker's Comp Is this a Worker's Comp case?: No [facility] History - Hepatitis A Screen Attestation statement:: This patient has been screened for Hepatitis A risk factors. I have reviewed the patient's past medical history: Yes Medical History: Reports:: Migraine Denies:: Cancer, Diabetes Mellitus Type 1, Diabetes Mellitus Type 2, H
[2021-10-08 09:10] LABS: Strep Scrn Group A (Rapid) Negative (Negative)
[2021-10-08 09:22] VITALS: BP 113/75; PULSE 109; RESP 18; TEMP 36.6; O2SAT 98
== END 2021-10-08 09:31 | disposition home or self-care (01) ==
PROVIDERS: Emergency Provider Nurse Practitioner; PCP Physician Assistant
DX: B34.9 Viral infection, unspecified (principal); Z88.2 Allergy status to sulfonamides
CPT/HCPCS: 87430; 99212; C9803; G0463; U0003; U0005

== ENCOUNTER → 2021-10-09 11:06 | Outpatient (CLI) | payer OTHER, SELFPAY ==
--- NOTE | 2021-10-09 11:07 | CA_ITS ---
FINAL REPORT TECHNIQUE: Color Doppler, duplex Doppler and compression sonography of the left lower extremity deep venous systems was performed. CLINICAL HISTORY: pain left lower extremity. Patient is 35 weeks . She denies trauma. She is currently taking 81 mg ASA daily. States she had a bad charley horse 10/04/21 with pain progressively getting worse since this time. FINDINGS: There is no evidence of deep venous thrombosis from the level of the groin to the calf. The veins are patent and compressible. IMPRESSION: No evidence of deep venous thrombosis left lower extremity. Reviewed, Interpreted and Dictated by Osei Reyez III, MD Transcribed by Frank Zavaleta Authenticated and [facility]
[2021-10-09 12:05] LABS: Basophils # 0.1 K/mm3 (0-0.2); Basophils % 1.1 % (0.1-2.0); Eosinophils # 0.1 K/mm3 (0.0-0.4); Eosinophils % 0.8 % (0.1-12.0); Hematocrit 35.4 % (37.0-47.0); Hemoglobin 11.2 g/dL (12.2-16.2); Lymphocytes # 1.1 K/mm3 (0.7-4.5); Lymphocytes % 16.6 % (10-50); Mean Corpuscular HGB Conc 31.5 g/dL (31.8-35.4); Mean Corpuscular Hemoglobin 30.1 pg (27.0-31.2); Mean Corpuscular Volume 95.4 fl (81-99); Mean Platelet Volume 8.6 fl (7.4-10.4); Monocytes # 0.4 K/mm3 (0.1-1.0); Neutrophils % 75.6 % (37.0-80.0); Platelet Count 296 K/mm3 (142-424); Red Blood Count 3.72 M/mm3 (4.20-5.40); White Blood Count 6.6 K/mm3 (4.8-10.8)
[2021-10-09 12:18] LABS: Chloride 108 mmol/L (98-107); Potassium 4.2 mmoL/L (3.5-5.1); Sodium 134 mmol/L (136-145)
[2021-10-09 12:20] LABS: Blood Urea Nitrogen 6 mg/dl (7-17); Estimated Glomerular Filt Rate 117 ml/min (>60); GFR (African American) 141 ML/MIN (>60)
[2021-10-09 12:21] LABS: Alanine Aminotransferase 12 U/L (12-78); Albumin Level 3.5 g/dl (3.5-5.0); Alkaline Phosphatase 92 U/L (38-126); Anion Gap 9.2 mEq/L (5-15); Aspartate Amino Transferase 26 U/L (14-36); Bilirubin,Total 0.4 mg/dl (0.2-1.3); Calcium 8.6 mg/dl (8.4-10.2); Carbon Dioxide 21 mmol/L (22.0-30.0); Globulin 3.5 g/dL (1.3-3.2); Glucose 87 mg/dl (74-100); Magnesium 1.7 mg/dl (1.6-2.3)
[2021-10-09 14:03] LABS: Vitamin B12 183 pg/mL (239-931)
[2021-10-10 08:19] LABS: Homocyst(e)ine 5.5 umol/L (0.0-14.5)
[2021-10-10 15:14] LABS: Anticardiolipin Ab,IgA,Qn <9 APL U/mL (0-11)
[2021-10-10 23:11] LABS: Protein S Antigen, Total 55 % (60-150); Protein S, Free 48 % (61-136)
[2021-10-11 04:12] LABS: Protein C Antigen 114 % (60-150)
[2021-10-18 13:10] LABS: APTT 24.8 sec (.); Anti-Cardiolipin Antibody IgG <10 GPL (.); Anti-Cardiolipin Antibody IgM <10 MPL (.); Beta-2 Glycoprotein I Ab, IgA <10 SAU (.); Beta-2 Glycoprotein I Ab, IgG <10 SGU (.); Beta-2 Glycoprotein I Ab, IgM <10 SMU (.); Hexagonal Phase Phospholipid 3 sec (.); INR 0.9 ratio (.); Prothrombin Time 9.5 sec (.); Thrombin Time 14.8 sec (.)
== END ==
PROVIDERS: Nurse Practitioner Family; PCP Physician Assistant; Visit Provider Physician Assistant
DX: M79.605 Pain in left leg (principal); G89.29 Other chronic pain; N96 Recurrent pregnancy loss; R51.9 Headache, unspecified; Z3A.18 18 weeks gestation of pregnancy; Z86.19 Personal history of other infectious and parasitic diseases
CPT/HCPCS: 80053; 81241; 82607; 82746; 83090; 83735; 85025; 85302; 85305; 85306; 85597; 85598; 85610; 85613; 85670; 85730; 86146; 86147; 93971

== ENCOUNTER 2021-12-25 13:53 | Emergency (ER) | payer OTHER, SELFPAY ==
[2021-12-25] VITALS (14 sets, daily range): BP systolic 131–161; BP diastolic 96–112; PULSE 60–83; RESP 18; TEMP 36.4–36.7; O2SAT 97–100; BMI 21.4
--- NOTE | 2021-12-25 14:17 | EXP.UTC ---
Discharge Plan Disposition Patient Disposition: Still a Patient Condition: Fair Prescriptions Prescriptions: No Action mecobalamin (vitamin B12) 1,000 mcg tablet,disintegrating 1,000 mcg SL DAILY Qty: 90 0RF Rx Instructions: place tablet under tongue and allow to dissolve for at least30 secs before swallowing aspirin 81 MG tablet,chewable 81 mg PO DAILY Referrals Follow up/Referrals: Patti Samson PA [Primary Care Provider] - See instructions Discharge ED Provider: Maggie Roman [facility] [place] HPI General Stated complaint: MENENDEZ, sinus pain Mode of Arrival: Ambulatory Source of Information: Patient Limitations: No Limitations Time Seen by Provider: 12/25/21 14:17 Description of Symptoms (Recalled from Triage Doc. by RN): PATIENT C/O HEADACHE AND NAUSEA X 3 DAYS. REPORTS A HISTORY OF MIGRAINES HEENT Symptoms (Recalled from RN notes): Yes Resp Symptoms (Recalled from RN notes): No Skin Symptoms (Recalled from RN notes): No MS Symptoms (Recalled from RN notes): No Functional Status (Recalled from RN notes): WNL History of Present Illness Provider Complaint: Patient states that she has history of migraine headaches States that she is currently being treated for preeclampsia and on labetalol States that for the last 3 days she has been having migraine that is not like her normal migraine headaches States that this is on the top of her head and her migraine medications isnt touching it States that normally her migraines are behind her eyes but this one is different Denies vision changes States that it is making her nauseous States that today when it was no better she came in Related Data Home Medications Medication Instructions Recorded Confirmed aspirin 81 mg chewable tablet 81 mg PO DAILY BLOOD PRESSURE 10/08/21 10/09/21 Previous Rx's Medication Instructions Recorded mecobalamin (vitamin B12) 1,000 1,000 mcg sublingual DAILY #90 tabs 10/10/21 mcg disintegrating tablet,sublingual Allergies Allergy/AdvReac Type Severity Reaction Status Date / Time Sulfa (Sulfonamide Allergy Intermediate I-RASH Verified 08/13/21 08:11 Antibiotics) [SULFA (SULFONAMIDE ANTIBIOTICS)] Worker's Comp Is this a Worker's Comp case?: No [facility] Medical History (Updated 12/25/21 @ 14:13 by Kim Velásqeuz RN) Hypertension Surgical History (Updated 12/25/21 @ 14:13 by Kim Velásquez RN) History of tubal ligation Hx of hernia repair Social History (Updated 12/25/21 @ 14:13 by Kim Velásquez RN) Smoking Status: Never smoker alcohol intake: never substance use type: denies use current occupational status: other Travel in the last 8 weeks: None household members: significant other and children housing: house current occupation: [employer] caffeine: Yes ROS Obtained: Yes All systems reviewed & no additional complaints except as documented and Yes Systems reviewed as appropriate & no additional complaints except as documented Constitutional Constitutional: Reports system reviewed and no additional complaints, except as documented, Reports as per HPI and Reports headache(s) (hx of migraines but this one is not like her normal migraine headaches) Eyes Eyes: Reports system reviewed and no additional complaints, except as documented, Reports as per HPI, Denies blurry vision and Denies loss of vision ENT Ears, Nose, Mouth, and Throat: Reports system reviewed and no additional complaints, except as documented, Reports as per HPI and Reports headache(s) (hx of migraines but this one is not like her normal migraine headaches) Cardiovascular Cardiovascular: Reports system reviewed and no additional complaints, except as documented and Reports as per HPI Gastrointestinal Gastrointestingal: Reports system reviewed and no additional complaints, except as documented, as per HPI and nausea Neurologic Neurologic: Reports headache(s) (hx of migraines but this one is not like her norm
--- NOTE | 2021-12-25 14:32 | PC.NURSE ---
PATIENT SENT TO ER PER Vadim LEE APRN FOR FURTHER EVALUATION. REPORT GIVEN TO Ana WILLIS RN
--- NOTE | 2021-12-25 14:39 | CT_ITS ---
FINAL REPORT CLINICAL HISTORY: concern for cerebral venous thrombus, time for yusra FINDINGS: Axial imaging of the head was obtained with contrast. This study was performed with techniques to keep radiation doses as low as reasonably achievable, (ALARA). Individualized dose reduction techniques using automated exposure control or adjustment of mA and/or kV according to the patient's size were employed. The superior sinus is well opacified. There is no evidence of sinus thrombus. The ventricles are normal in size. There is no evidence of hemorrhage. No masses are identified. No extra-axial fluid is seen. The sinuses are normal. There is no acute osseous abnormality. There is no abnormal contrast enhancement. IMPRESSION: No acute intracranial abnormality. No evidence of thrombus. Reviewed, Interpreted and Dictated by Oj Mcguire MD Transcribed by Frank Zavaleta Authenticated and [facility]
--- NOTE | 2021-12-25 14:48 | HMH.EDHA ---
Discharge Plan Disposition Patient Disposition: Still a Patient Condition: Fair Prescriptions Prescriptions: No Action mecobalamin (vitamin B12) 1,000 mcg tablet,disintegrating 1,000 mcg SL DAILY Qty: 90 0RF Rx Instructions: place tablet under tongue and allow to dissolve for at least30 secs before swallowing aspirin 81 MG tablet,chewable 81 mg PO DAILY Referrals Follow up/Referrals: Patti Samson PA [Primary Care Provider] - See instructions Clinical Impressions Clinical Impression: Pre-eclampsia, Hypertensive emergency Discharge ED Provider: Maggie Roman Headache HPI General Chief Complaint: Headache Stated Complaint: MENENDEZ, sinus pain Time Seen by Provider: 12/25/21 14:00 Mode of Arrival: Ambulatory Source of Information: Patient Limitations: No Limitations Description of Symptoms (Recalled from ER Triage Doc. by RN): PATIENT C/O HEADACHE AND NAUSEA X 3 DAYS. REPORTS A HISTORY OF MIGRAINES History of Present Illness HPI Narrative: 31-year-old female, 7 weeks being treated for preeclampsia with labetalol. She is having persistent headache today for 3 days. She says she gets daily headaches however this headache has been persistent and worse than normal. No vision changes numbness weakness or tingling arms or legs. Headache occurs throughout the whole day not worse in the morning or evening. No fever chills neck stiffness. No blood thinners. No lower extremity swelling or weight gain. MD Complaint: headache Onset description: gradual Severity: moderate Related Data Home Medications Medication Instructions Recorded Confirmed aspirin 81 mg chewable tablet 81 mg PO DAILY BLOOD PRESSURE 10/08/21 10/09/21 Previous Rx's Medication Instructions Recorded mecobalamin (vitamin B12) 1,000 1,000 mcg sublingual DAILY #90 tabs 10/10/21 mcg disintegrating tablet,sublingual Allergies Allergy/AdvReac Type Severity Reaction Status Date / Time Sulfa (Sulfonamide Allergy Intermediate I-RASH Verified 08/13/21 08:11 Antibiotics) [SULFA (SULFONAMIDE ANTIBIOTICS)] [facility] History Hepatitis A Screen Attestation statement:: This patient has been screened for Hepatitis A risk factors. Medical History: Reports: Migraine; Denies: Cancer, Diabetes Mellitus Type 1, Diabetes Mellitus Type 2, Hypertension, Internal Pacemaker, MRSA or Seizures Other Medical History: Denies Blood Transfusion Reaction Other Surgeries: No Pacemaker Amputation: No Fractures: Yes Comment: wisdom teeth Social History Smoking Status: Never smoker Alcohol Intake: never Alcohol Intake Frequency:: holidays/special occasions only Substance Use Type: denies use Occupational Status: other Housing: house Household Members: significant other and children Family Hx:: Cancer, Heart Attack, Substance abuse and Alcoholism Comment: miscarriage's were 2014,2016,2017 [facility] Medical History (Updated 12/25/21 @ 18:24 by Rupesh Tidwell MD) Hypertension Surgical History (Updated 12/25/21 @ 14:13 by Kim Velásquez RN) History of tubal ligation Hx of hernia repair Social History (Updated 12/25/21 @ 14:13 by Kim Velásquez RN) Smoking Status: Never smoker alcohol intake: never substance use type: denies use current occupational status: other Travel in the last 8 weeks: None household members: significant other and children housing: house current occupation: [employer] caffeine: Yes ROS Obtained: Yes All systems reviewed & no additional complaints except as documented Physical Exam General General appearance: alert and in no apparent distress Eye Eye exam: Present PERRL and EOMI ENT ENT exam: Present normal exam and normal oropharynx Neck Neck exam: Present normal inspection Chest Chest inspection: Present symmetric chest wall rise Respiratory Respiratory exam: Present normal lung sounds bilaterally; Absent respiratory distress Cardiovascular Cardiov
[2021-12-25 15:16] LABS: Basophils # 0.1 K/mm3 (0-0.2); Basophils % 1.7 % (0.1-2.0); Eosinophils # 0.2 K/mm3 (0.0-0.4); Hemoglobin 12.7 g/dL (12.2-16.2); Lymphocytes # 1.3 K/mm3 (0.7-4.5); Lymphocytes % 29.2 % (10-50); Mean Corpuscular HGB Conc 33.4 g/dL (31.8-35.4); Mean Corpuscular Hemoglobin 31.5 pg (27.0-31.2); Mean Corpuscular Volume 94.6 fl (81-99); Mean Platelet Volume 8.9 fl (7.4-10.4); Monocytes # 0.3 K/mm3 (0.1-1.0); Monocytes % 6.9 % (1.7-9.3); Neutrophils # 2.6 K/mm3 (1.8-7.8); Neutrophils % 58.3 % (37.0-80.0); Platelet Count 226 K/mm3 (142-424); Red Blood Count 4.02 M/mm3 (4.20-5.40); Red Cell Distribution Width 14.7 % (11.5-17.5); White Blood Count 4.4 K/mm3 (4.8-10.8)
[2021-12-25 15:19] LABS: Chloride 106 mmol/L (98-107)
[2021-12-25 15:20] LABS: Potassium 3.9 mmoL/L (3.5-5.1); Sodium 144 mmol/L (136-145)
[2021-12-25 15:22] LABS: Alanine Aminotransferase 47 U/L (12-78); Aspartate Amino Transferase 51 U/L (14-36); Blood Urea Nitrogen 10 mg/dl (7-17); Creatinine Clearance Estimated 100 mL/min (50-200); Estimated Glomerular Filt Rate 84 ml/min (>60); GFR (African American) 101 ML/MIN (>60)
[2021-12-25 15:23] LABS: Albumin Level 4.5 g/dl (3.5-5.0); Albumin/Globulin Ratio 1.3 (1.1-1.8); Alkaline Phosphatase 70 U/L (38-126); Anion Gap 15.9 mEq/L (5-15); Bilirubin,Total < 0.1 mg/dl (0.2-1.3); Calcium 8.5 mg/dl (8.4-10.2); Carbon Dioxide 26 mmol/L (22.0-30.0); Globulin 3.4 g/dL (1.3-3.2); Glucose 90 mg/dl (74-100); Total Protein,Serum 7.9 g/dl (6.3-8.2)
--- NOTE | 2021-12-25 17:18 | PC.NURSE ---
NIGHT WATCH PAGED
--- NOTE | 2021-12-25 17:51 | PC.NURSE ---
SPOKE WITH NIGHT WATCH REGARDING MEDS FOR HE ADVISE HER PUNP AND DUMP TILL NOON . PT IS GOOD WITH THAT SHE HAS BREST MILK STORED
[2021-12-25 18:07] LABS: Appearance,Urine CLEAR (Clear); Bilirubin,Urine Negative (Negative); Blood, Urine Negative (Negative); Color,Urine STRAW (Yellow); Glucose,Urine (UA) Negative (Negative); Ketones,Urine Negative (Negative); Leukocyte Esterase,Urine Negative (Negative); Microscopic, Urine URINE MICROSCOPIC (MICROSCOPIC); Nitrate,Urine Negative (Negative); PH,Urine 6.5 (5.0-8.5); Protein,Urine Negative (Negative); Specific Gravity, Urine <= 1.005 (1.005-1.030); Urobilinogen,Urine 0.2 EU/dl (0.2)
--- NOTE | 2021-12-25 18:37 | PC.NURSE ---
HOUSE IS AWARE OF ADMISSION
[2021-12-25 18:39] LABS: Coronavirus 19, PCR Not Detected (NotDetected); Influenza A, PCR Not Detected (NotDetected); Influenza B, PCR Not Detected (NotDetected)
[2021-12-25 18:59] LABS: Magnesium 1.7 mg/dl (1.6-2.3)
--- NOTE | 2021-12-25 19:04 | PC.NURSE ---
PT HAS DECIDED SHE DOES NOT WANT TO BE ADMITTED , DR VASQUEZ IS UPDATING DR BRUMFIELD PT IS GONNA LEAVE AMA , DR VASQUEZ TALKING WITH PT
--- NOTE | 2021-12-25 19:43 | PC.NURSE ---
Explained risks and benefits of signing out AMA to pt. Pt stated she was not aware she could keep her infant daughter with her if admitted and that she would be provided a breast pump. Pt was educated and still elected to sign out AMA. Form signed and placed in pt chart.
== END 2021-12-25 19:49 | disposition left against medical advice (07) ==
LOC: UTC 14:27 → ER 14:33
PROVIDERS: Emergency Medicine; Emergency Provider Nurse Practitioner; PCP Physician Assistant; Visit Provider Obstetrics & Gynecology
DX: O14.05 Mild to moderate pre-eclampsia, complicating the puerperium (principal); I16.1 Hypertensive emergency; Z88.2 Allergy status to sulfonamides; Z79.82 Long term (current) use of aspirin
CPT/HCPCS: 70460; 80053; 81001; 83735; 85025; 96365; 96366; 96367; 96375; 99284; C9803; J3475; Q9967; U0003; U0005

== ENCOUNTER → 2022-02-17 10:13 | Outpatient (CLI) | payer OTHER, SELFPAY ==
--- NOTE | 2022-02-17 10:20 | CT_ITS ---
FINAL REPORT TECHNIQUE: Postcontrast axial images of the chest were performed in a CTA protocol. This study was performed with techniques to keep radiation doses as low as reasonably achievable, (ALARA). Individualized dose reduction technique using automated exposure control or adjustment of mA and/or kV according to the patient's size were employed. CLINICAL HISTORY: soa, tachycardia 3 months FINDINGS: The heart is normal in size. No adenopathy is identified. No pleural or pericardial effusion is identified. The ascending aorta measures up to 3.5 cm in diameter. There is no dissection. There is no filling defect to suggest pulmonary embolism. There is a calcified granuloma in the medial superior segment of the right lower lobe. No lung infiltrate or mass is identified. The images of the upper abdomen are unremarkable. IMPRESSION: No evidence for PE on this exam. Reviewed, Interpreted and Dictated by Oj Mcguire MD Transcribed by Yesenia Chaparro Authenticated and [facility]
== END ==
PROVIDERS: PCP Nurse Practitioner Family; Visit Provider Nurse Practitioner
DX: R06.00 Dyspnea, unspecified (principal); R07.9 Chest pain, unspecified; R00.0 Tachycardia, unspecified
CPT/HCPCS: 71275; Q9967

== ENCOUNTER → 2022-02-20 10:19 | Outpatient (CLI) | payer OTHER, SELFPAY ==
--- NOTE | 2022-02-20 11:15 | CA_ITS ---
APPROVED REPORT Exam: Exercise Treadmill Technologist: Nellie Adrian, Ht: 5 ft 7 in Wt: 138 lbs BSA: 1.73 m2 HR: 90 bpm BP: 125/88 mmHg Stress Test Details Test: Rufus HR Resting HR: 117 bpm Max Heart Rate (APMHR): 189 bpm Max HR Achieved: 161 bpm Target HR (85% APMHR): 160 bpm % of APMHR: 85 Recovery HR: 98 bpm BP Resting BP: 123/87 mmHg Max BP: 149/94 mmHg Recovery BP: 128.0/87.0 mmHg ECG Resting ECG: sinus tachycardia Clinical Exercise duration: 09:01 min Highest Stage Achieved: III Exercise capacity: 10.1 METs Stress ECG Conclusion Max HR: 161 Test stopped due to: SOA Symptoms: SOA with peak exercise Arrhythmias/Ectopy: none, less than 1.[address] segment depression from baseline EKG. EKG is negative for ischemia with exercise. Test Summary REST . . . . . . . Sitting REST . . . . . . . Standing REST 09:36 0.0 0.0 117 . 123/ 87 . . Stage 1 01:00 10.0 1.7 115 . . . . Stage 1 02:00 10.0 1.7 113 . . . . Stage 1 03:00 10.0 1.7 113 . 120/ 88 . . Stage 2 01:00 12.0 2.5 121 . . . . Stage 2 02:00 12.0 2.5 122 . . . . Stage 2 03:00 12.0 2.5 126 . 122/ 90 . . Stage 3 01:00 14.0 3.4 142 . . . . Stage 3 02:00 14.0 3.4 156 . . . . Stage 3 03:00 14.0 3.4 159 . 130/ 98 . . Stage 4 00:01 16.0 4.2 158 . . . Stop exercise at 09:01 RECOVERY 01:00 0.0 0.0 141 . . . . RECOVERY 02:00 0.0 0.0 109 . 149/ 94 . . RECOVERY 03:00 0.0 0.0 103 . 127/ 92 . . RECOVERY 04:00 0.0 0.0 101 . 128/ 87 . . RECOVERY 04:03 0.0 0.0 102 . 128/ 87 . . Electronically signed by : Cruz Gutierrez MD 03/03/2022 17:52:50
== END ==
PROVIDERS: PCP Nurse Practitioner Family; Visit Provider Nurse Practitioner
DX: R06.00 Dyspnea, unspecified (principal); R07.9 Chest pain, unspecified; I35.0 Nonrheumatic aortic (valve) stenosis
CPT/HCPCS: 93017; 93306

== ENCOUNTER 2022-04-02 17:30 | Outpatient (RCR) | payer OTHER, SELFPAY ==
--- NOTE | 2022-02-20 17:51 | HMH.PTOPEV ---
PT Outpatient Evaluation Rehab PT Outpatient Evaluation Start: 02/20/22 17:32 Freq: Status: Active Protocol: Document 02/20/22 17:32 MARIPOSA (Rec: 02/20/22 17:51 MARIPOSA [id number]) E-signed By Bienvenido Segundo, PT Outpatient Therapy Subjective History Subjective History Patient is a 31 year old female presenting to outpatient PT with reports of cervical/upper thoracic spine pain, as well as cervicogenic headaches starting approximately 1 month ago of insidious onset No recent imaging to report. Comorbiities include hx of HTN , umbilical hernia and pre- eclampsia. Chief Complaint Pain Symptom Type Ache,Numbness,Tingling Symptoms Relieved By Heat,OTC Meds Symptoms Aggravated By Sitting,Physical Activity Prior Functional Limitations None Current Functional Limitations Reaching,Lifting,Housework, Desk Work/Reading,Sleeping, Sitting Symptom Description Intermittent Level of pain today (0-10) 0 Pain scale - at its best (0-10) 0 Pain scale - at its worst (0-10) 6 Cervical Eval Palpation Cervical Muscles R Upper Trapezius,L Upper Trapezius Cervical/Thoracic Palpation Findings Tenderness Posture Head/C-Spine Posture Sitting Position C-Spine Flattened Head/C-Spine Posture Standing Position C-Spine Flattened Flexibility Deficits Levaetor Scapulae Muscle Length (R) Moderate Tightness,(L) Moderate Tightness Scalene Group Muscle Length (R) Moderate Tightness,(L) Moderate Tightness Pectoralis Minor Muscle Length (R) Moderate Tightness,(L) Moderate Tightness Passive Joint Mobility Cervical PIVM WNL: R OA L OA R AA L AA R C2/3 L C2/3 R C3/4 L C3/4 R C4/5 L C4/5 R C5/6 L C5/6 R C6/7 L C6/7 R C7/T1 L C7/T1 AROM Cervical Spine
== END 2022-04-02 17:35 | disposition home or self-care (01) ==
LOC: PT 17:30
PROVIDERS: PCP Nurse Practitioner Family; Visit Provider Nurse Practitioner Family
DX: R51.9 Headache, unspecified (principal); G89.29 Other chronic pain
CPT/HCPCS: 97163

== ENCOUNTER 2022-05-31 09:27 | Emergency (ER) | payer OTHER, SELFPAY ==
[2022-05-31 09:45] VITALS: BP 132/97; PULSE 107; RESP 14; TEMP 37.3; O2SAT 99; BMI 21.1
[2022-05-31 10:15] LABS: UTC Strep Screen (Rapid) Positive (Negative)
--- NOTE | 2022-05-31 10:31 | EXP.UTC ---
Discharge Plan Disposition Patient Disposition: Home, Self-Care Condition: Good Prescriptions Prescriptions: New amoxicillin 875 mg tablet 875 mg PO BID 10 Days Qty: 20 0RF No Action Nurtec ODT 75 mg tablet,disintegrating 75 mg PO ONCE PRN Referrals Follow up/Referrals: Patti Samson PA [Primary Care Provider] - See instructions Clinical Impressions Clinical Impression: Streptococcal sore throat Instructions Patient Instructions: Strep Throat Discharge ED Provider: Nessa Tafoya [facility] HPI General Stated complaint: sore throat,body aches Mode of Arrival: Ambulatory Source of Information: Patient Limitations: No Limitations Time Seen by Provider: 05/31/22 10:31 Description of Symptoms (Recalled from Triage Doc. by RN): sore throat, body aches, MENENDEZ HEENT Symptoms (Recalled from RN notes): Yes Resp Symptoms (Recalled from RN notes): No Skin Symptoms (Recalled from RN notes): No MS Symptoms (Recalled from RN notes): No Functional Status (Recalled from RN notes): n/a Related Data Home Medications Medication Instructions Recorded Confirmed rimegepant 75 mg disintegrating 75 mg PO ONCE PRN 03/04/22 04/09/22 tablet (Nurtec ODT) Previous Rx's Medication Instructions Recorded amoxicillin 875 mg tablet 875 mg PO BID 10 days #20 tabs 05/31/22 Allergies Allergy/AdvReac Type Severity Reaction Status Date / Time Sulfa (Sulfonamide Allergy Intermediate I-RASH Verified 05/31/22 10:17 Antibiotics) [SULFA (SULFONAMIDE ANTIBIOTICS)] Worker's Comp Is this a Worker's Comp case?: No [facility] Disclaimer: The information contained in this section may have been updated after the patient was seen, as this information can be updated by other users. Medical History (Updated 05/31/22 @ 10:40 by Nessa Tafoya APRN) Hypertension Major depressive disorder Posttraumatic stress disorder Surgical History History of tubal ligation Hx of hernia repair Family History Mother Substance abuse Father Alcoholism Substance abuse Social History Smoking Status: Never smoker second hand exposure: No alcohol intake: current counseling given: No substance use type: denies use counseling given: No current occupational status: employed Travel in the last 8 weeks: None adopted: No caregiver/support person: No foster care: No household members: significant other and children housing: house lives independently: Yes marital status: number of children: 4 number of grandchildren: 0 education level: high school service: No skilled nursing: No current occupation: [employer] Hx Recent Travel: No sexually active: Yes caffeine: Yes physical activity: none kerry/anabaptism: None special kerry needs: No working smoke detector in home: Yes fire extinguisher in home: No carbon monox detector in home: No firearms in home: No do you feel safe at home: Yes victim of physical abuse: No victim of emotional abuse: Yes victim of sexual abuse: No would you like helpful sources: No ROS Obtained: Yes All systems reviewed & no additional complaints except as documented Constitutional Constitutional: Reports system reviewed and no additional complaints, except as documented and Reports malaise Eyes Eyes: Reports system reviewed and no additional complaints, except as documented ENT Ears, Nose, Mouth, and Throat: Reports as per HPI and Reports sore throat Cardiovascular Cardiovascular: Reports system reviewed and no additional complaints, except as documented Respiratory Respiratory: Reports system reviewed and no additional complaints, except as documented and Reports cough Gastrointestinal Gastrointestingal: Reports system reviewed and no additional comp
[2022-05-31 10:47] VITALS: BP 132/97; PULSE 107; RESP 14; TEMP 37.3; O2SAT 99
== END 2022-05-31 10:46 | disposition home or self-care (01) ==
PROVIDERS: Emergency Provider Nurse Practitioner Family; PCP Physician Assistant
DX: J02.0 Streptococcal pharyngitis (principal)
CPT/HCPCS: 87880; 99212; 99213; G0463

== ENCOUNTER → 2022-06-13 09:20 | Outpatient (CLI) | payer OTHER, SELFPAY ==
[2022-06-13 14:24] LABS: Adenovirus,PCR Not Detected (NotDetected); Bordetella Pertussis Not Detected (NotDetected); Chlamydophila Pneumoniae, PCR Not Detected (NotDetected); Coronavirus 19, PCR Not Detected (NotDetected); Coronavirus 229E Not Detected (NotDetected); Coronavirus NL63 Not Detected (NotDetected); Coronavirus OC43 Not Detected (NotDetected); Coronovirus HKU1,PCR Not Detected (NotDetected); Human Metapneumovirus Not Detected (NotDetected); Influenza A, PCR Not Detected (NotDetected); Influenza AH1, 2009 Not Detected (NotDetected); Influenza AH1, PCR Not Detected (NotDetected); Influenza AH3,PCR Not Detected (NotDetected); Influenza B, PCR Not Detected (NotDetected); Mycoplasma Pneumoniae, PCR Not Detected (NotDetected); Parainfluenza 1, PCR Not Detected (NotDetected); Parainfluenza 2, PCR Not Detected (NotDetected); Parainfluenza 3, PCR Not Detected (NotDetected); Parainfluenza 4, PCR Not Detected (NotDetected); Respiratory Syncytial Virus Not Detected (NotDetected)
[2022-06-13 16:02] LABS: Rhinovirus/Enterovirus Detected (NotDetected)
== END ==
PROVIDERS: PCP Nurse Practitioner Family; Visit Provider Nurse Practitioner Family
DX: R50.9 Fever, unspecified (principal); R09.81 Nasal congestion; B34.1 Enterovirus infection, unspecified
CPT/HCPCS: 87581; 87632; 87798; C9803; U0003; U0005

== ENCOUNTER 2022-10-16 17:35 | Emergency (ER) | payer OTHER, SELFPAY ==
[2022-10-16 17:40] VITALS: BP 146/90; PULSE 81; RESP 18; TEMP 36.8; O2SAT 98; BMI 22.3
--- NOTE | 2022-10-16 17:58 | EXP.UTC ---
Discharge Plan Disposition Patient Disposition: Home, Self-Care Condition: Good Prescriptions Prescriptions: New ibuprofen 600 mg tablet 600 mg PO Q6HP PRN (Reason: Moderate Pain) Qty: 20 0RF methylprednisolone [Medrol (Lux)] 4 mg tablets,dose pack See Rx Instructions .Route .COMPLEX 6 Days Qty: 21 0RF Rx Instructions: taper pack; No Action trpkkosbyqkigzn-yorhqkjcr-BR 2-30-10 mg/5 mL syrup 5 ml PO Q6H PRN (Reason: allergy symptoms) Qty: 118 0RF Nurtec ODT 75 mg tablet,disintegrating 75 mg PO ONCE PRN Referrals Follow up/Referrals: Patti Samson PA [Primary Care Provider] - See instructions Khalif Myers DO [Staff Physician] - See instructions (Call office for appointment if pain continues) Activity Restrictions/Add. Instructions Additional Instructions/Restrictions: *RICE, Rest the extremity, Ice 15-20 minutes 3-4 times daily, Compress- wear the brady wrap as discussed as much as possible to help reduce swelling and pain, Elevate the extremity when at rest *Brady wrap is for support and help control swelling, use it except in the shower. Be sure that is not to tight but not to loose either *Elevate when resting? *Ibuprofen 600-800mg every 6-8 hours as needed for pain an inflammation. If need something more can take Tylenol in between doses of Ibuprofen to help Immediately follow up with your family doctor for new or worsening of symptoms, or no noticeable improvement over the next 3-5 days Clinical Impressions Clinical Impression: Biceps tendinitis Qualifiers: Laterality: right Qualified Code(s): M75.21 - Bicipital tendinitis, right shoulder Instructions Patient Instructions: DI for Tendinitis, Ibuprofen, Methylprednisolone Discharge ED Provider: Maggie Roman [facility] General Stated complaint: RT arm pain Mode of Arrival: Ambulatory Source of Information: Patient Limitations: No Limitations Time Seen by Provider: 10/16/22 17:58 Description of Symptoms (Recalled from Triage Doc. by RN): PATIENT C/O MUSCLE SPASM TO RIGHT UPPER ARM AFTER LIFTING WEIGHT AT GYM ON THURSDAY HEENT Symptoms (Recalled from RN notes): No Resp Symptoms (Recalled from RN notes): No Skin Symptoms (Recalled from RN notes): No MS Symptoms (Recalled from RN notes): Yes Functional Status (Recalled from RN notes): WNL History of Present Illness Provider Complaint: Patient states that she recently started working out with a computer trainer States that she lifted on Thursday and then on Thursday she started having pain in her upper arm States that she is worried she may have torn something States that today she was still having pain in her arm with movement so she came in to get it checked Related Data Home Medications Medication Instructions Recorded Confirmed rimegepant 75 mg disintegrating 75 mg PO ONCE PRN 03/04/22 09/03/22 tablet (Nurtec ODT) Previous Rx's Medication Instructions Recorded fsgqkoaakkmhjbu-gsbgmflowjlfkdh-GC 5 ml PO Q6H PRN allergy symptoms 09/03/22 2 mg-30 mg-10 mg/5 mL oral syrup #118 mL ibuprofen 600 mg tablet 600 mg PO Q6HP PRN Moderate Pain 10/16/22 #20 tabs methylprednisolone 4 mg tablets in See Rx Instructions .Route 10/16/22 a dose pack (Medrol (Lux)) .COMPLEX 6 days #21 tabs Allergies Allergy/AdvReac Type Severity Reaction Status Date / Time Sulfa (Sulfonamide Allergy Intermediate I-RASH Verified 09/03/22 14:44 Antibiotics) [SULFA (SULFONAMIDE ANTIBIOTICS)] Worker's Comp Is this a Worker's Comp case?: No [facility] Disclaimer: The information contained in this section may have been updated after the patient was seen, as this information can be updated by other users. Medical History Hypertension Major depressive disorder Posttraumatic stress disorder Surgical History History of tubal ligation Hx of hernia repair Famil
--- NOTE | 2022-10-16 18:05 | XR_ITS ---
PROCEDURE INFORMATION: Exam: XR Right Humerus Exam date and time: 10/16/2022 6:10 PM Age: 32 years old Clinical indication: Upper arm; Patient HX: Right distal humerus pain after lifting weights. ; Additional info: Upper arm pain TECHNIQUE: Imaging protocol: Radiologic exam of the right humerus. Views: 2 or more views. COMPARISON: CT ANGIO CHEST PE PROTOCOL 02/17/2022 10:29 AM FINDINGS: Bones/joints: Normal. Soft tissues: Normal. IMPRESSION: No acute findings.
[2022-10-16 19:02] VITALS: BP 146/90; PULSE 81; RESP 18; TEMP 36.8; O2SAT 98
== END 2022-10-16 19:09 | disposition home or self-care (01) ==
PROVIDERS: Emergency Provider Nurse Practitioner; PCP Physician Assistant
DX: M75.21 Bicipital tendinitis, right shoulder (principal); I10 Essential (primary) hypertension; F33.9 Major depressive disorder, recurrent, unspecified; X50.0XXA Overexertion from strenuous movement or load, initial encounter
CPT/HCPCS: 73060; 99212; 99214; G0463

== ENCOUNTER 2023-05-07 09:45 | Outpatient (CLI) | payer OTHER, SELFPAY ==
[2023-05-07 12:32] LABS: Basophils % 0.8 % (0.1-2.0); Eosinophils # 0.1 K/mm3 (0.0-0.4); Eosinophils % 2.3 % (0.1-12.0); Hemoglobin 13.5 g/dL (12.2-16.2); Lymphocytes # 1.1 K/mm3 (0.7-4.5); Lymphocytes % 22.2 % (10-50); Mean Corpuscular HGB Conc 33.8 g/dL (31.8-35.4); Mean Corpuscular Hemoglobin 32.1 pg (27.0-31.2); Mean Corpuscular Volume 94.8 fl (81-99); Mean Platelet Volume 8.6 fl (7.4-10.4); Monocytes # 0.4 K/mm3 (0.1-1.0); Monocytes % 7.6 % (1.7-9.3); Neutrophils # 3.3 K/mm3 (1.8-7.8); Platelet Count 225 K/mm3 (142-424); Red Blood Count 4.22 M/mm3 (4.20-5.40); Red Cell Distribution Width 13.2 % (11.5-17.5)
[2023-05-07 12:36] LABS: Alanine Aminotransferase 16 U/L (12-78); Albumin Level 4.1 g/dl (3.5-5.0); Albumin/Globulin Ratio 1.2 (1.1-1.8); Alkaline Phosphatase 54 U/L (38-126); Anion Gap 11.2 mEq/L (5-15); Aspartate Amino Transferase 27 U/L (14-36); Bilirubin,Total 0.3 mg/dl (0.2-1.3); Blood Urea Nitrogen 10 mg/dl (7-17); Calcium 8.8 mg/dl (8.4-10.2); Carbon Dioxide 26 mmol/L (22.0-30.0); Chloride 106 mmol/L (98-107); Chol/HDL Ratio 3.7 (1-3.5); Cholesterol 143 mg/dl (140-200); Estimated Glomerular Filt Rate 73 ml/min (>60); GFR (African American) 88 ML/MIN (>60); Globulin 3.4 g/dL (1.3-3.2); Glucose 79 mg/dl (74-100); HDL Cholesterol 39 mg/dl (40-60); Potassium 4.2 mmoL/L (3.5-5.1); Sodium 139 mmol/L (136-145); Total Protein,Serum 7.5 g/dl (6.3-8.2); Triglycerides 119 mg/dl (30-150); VLDL Cholesterol 24 mg/dL (0-40)
[2023-05-07 12:46] LABS: Direct LDL Cholesterol 76.08 mg/dL (100-129)
[2023-05-07 12:52] LABS: 25-OH Vitamin D, Total 17.7 ng/mL (30-100)
[2023-05-07 13:06] LABS: Thyroid Stimulating Hormone 1.09 uIU/mL (0.465-4.68)
[2023-05-07 13:25] LABS: Vitamin B12 220 pg/mL (239-931)
== END 2023-05-07 23:59 ==
LOC: RT 09:46
PROVIDERS: PCP Physician Assistant; Visit Provider Family Medicine
DX: R00.2 Palpitations (principal); A69.20 Lyme disease, unspecified; E53.8 Deficiency of other specified B group vitamins; E55.9 Vitamin D deficiency, unspecified
CPT/HCPCS: 80053; 80061; 82306; 82607; 84443; 85025; 93270

== ENCOUNTER 2023-08-27 08:09 | Emergency (ER) | payer OTHER, SELFPAY ==
[2023-08-27 08:20] VITALS: BP 141/96; PULSE 76; RESP 20; TEMP 36.9; O2SAT 98; BMI 23.8
[2023-08-27 08:36] LABS: UTC Strep Screen (Rapid) Negative (Negative)
--- NOTE | 2023-08-27 09:01 | EXP.UTC ---
Discharge Plan Disposition Patient Disposition: Home, Self-Care Condition: Good Prescriptions Prescriptions: New diphenhydramine HCl 25 mg capsule 25 mg PO Q6HP PRN (Reason: Itching) Qty: 30 0RF methylprednisolone 4 mg Tablets,Dose Pack 4 mg PO DIRECTED 6 Days Qty: 21 0RF Rx Instructions: Take 1 pack as directed for 6 days No Action Nurtec ODT 75 mg tablet,disintegrating 75 mg PO ONCE PRN (Reason: Migraine Headache) Referrals Follow up/Referrals: Patti Samson PA [Primary Care Provider] - See instructions Activity Restrictions/Add. Instructions Additional Instructions/Restrictions: Try to identify and avoid contact with the offending substance (poison lila). Don't start the oral steroids until tomorrow. The diphenhydramine (benedryl) will make you drowsy, so don't drive or operate heavy machinery after taking it. Follow up with your regular doctor. GO TO THE ER FOR ANY WORSENING SYMPTOMS OR CONCERNS Clinical Impressions Clinical Impression: Allergic reaction Instructions Patient Instructions: DI for General Allergic Reactions, Diphenhydramine, Methylprednisolone, Dexamethasone Injection Discharge ED Provider: Myron Jimenez [facility] General Stated complaint: sore throat headache Mode of Arrival: Ambulatory Source of Information: Patient Limitations: No Limitations Time Seen by Provider: 08/27/23 08:59 Description of Symptoms (Recalled from Triage Doc. by RN): PATIENT C/O RASH IN MOUTH, SORE THROAT AND HEADACHE THAT STARTED THURSDAY. SHE STATES SYMPTOMS STARTED AFTER SHE ATE SOME BERRIES OFF OF A DALY THAT SHE THOUGHT WERE MULBERRIES. HEENT Symptoms (Recalled from RN notes): Yes Resp Symptoms (Recalled from RN notes): No Skin Symptoms (Recalled from RN notes): No MS Symptoms (Recalled from RN notes): No Functional Status (Recalled from RN notes): WNL History of Present Illness Provider Complaint: She states that 2 days ago she ate some mulberries for the first time in her life. Since then she has had blisters on the inside of her lips and on the roof of her mouth. Related Data Home Medications Medication Instructions Recorded Confirmed rimegepant 75 mg disintegrating 75 mg PO ONCE PRN Migraine Headache 03/04/22 08/27/23 tablet (Nurtec ODT) Previous Rx's Medication Instructions Recorded diphenhydramine HCl 25 mg capsule 25 mg PO Q6HP PRN Itching #30 caps 08/27/23 methylprednisolone 4 mg tablets in 4 mg PO DIRECTED 6 days #21 tabs 08/27/23 a dose pack Allergies Allergy/AdvReac Type Severity Reaction Status Date / Time Sulfa (Sulfonamide Allergy Intermediate I-RASH Verified 06/11/23 09:47 Antibiotics) [SULFA (SULFONAMIDE ANTIBIOTICS)] Worker's Comp Is this a Worker's Comp case?: No [facility] Disclaimer: The information contained in this section may have been updated after the patient was seen, as this information can be updated by other users. Medical History (Updated 08/27/23 @ 09:19 by Myron Jimenez APRN) Migraine Fatigue Snoring Biceps tendinitis Streptococcal sore throat Major depressive disorder Posttraumatic stress disorder Dyspnea Chest pain Tachycardia Chronic head pain Hypertensive emergency Pre-eclampsia Hypertension Viral syndrome UTI (urinary tract infection) Gastroenteritis Fever blister Strep pharyngitis Swelling of both lips pain Insect bite Cellulitis Vertigo Right serous otitis media Urinary symptom or sign Surgical History History of tubal ligation Hx of hernia repair Family History Mother Substance abuse Father Alcoholism Substance abuse Social History Smoking Status: Never smoker second hand exposure: No alcohol intake: current alcohol intake frequency: holidays/special occasions only counseling given: No substance use type: denies use counseling given: No current occupational status: employed Travel in the last 8 weeks: None adopted: No caregiver/support person: No foster care: No household members: significant other and children housing: house lives independently: Yes marital status: number of children: 4 number of grandchildren: 0 education level: high school service: No [place] [facility]: No current occupation: [employer] Hx Recent Travel: No sexually active: Yes caffeine: Yes physical activity: none kerry/muslim: None special kerry needs: No working smoke detector in home: Yes fire extinguisher in home: No carbon monox detector in home: No firearms in home: No do you feel safe at home: Yes victim of physical abuse: No victim of emotional abuse: Yes victim of sexual abuse: No would you like helpful sources: No ROS Obtained: Yes All systems reviewed & no additional complaints except as documented Constitutional Constitutional: Denies chills and Denies fever(s) Eyes Eyes: Denies eye discharge ENT Ears, Nose, Mouth, and Throat: Reports as per HPI, Denies dizziness, Denies otalgia and Reports sore throat Cardiovascular Cardiovascular: Denies chest pain Respiratory Respiratory: Denies shortness of breath, Denies chest congestion, Denies cough, Denies stridor and Denies wheezing Gastrointestinal Gastrointestingal: Denies nausea or vomiting Musculoskeletal Musculoskeletal: Reports system reviewed and no additional complaints, except as documented and Denies arthralgias Integumentary/Breasts Skin/Breast: Denies rash Neurologic Neurologic: Denies dizziness and Denies paresthesias Allergic/Immunologic Allergic/Immunologic: Denies wheezing Physical Exam General General appearance: alert and in no apparent distress Head Head exam: atraumatic, normocephalic and normal inspection Eye Eye exam: Present normal appearance, PERRL and EOMI ENT ENT exam: Present mucous membranes moist, TM's normal bilaterally and normal external ear exam Expanded ENT Exam Nose exam: Absent sinus tenderness Nasal speculum exam: Bilateral: normal Mouth exam: Present other (multiple small blisters inside lips); Absent drooling Teeth exam: Present normal inspection Throat exam: Present tonsillar erythema Neck Neck exam: Present normal inspection, full ROM and trachea midline; Absent meningismus or lymphadenopathy Chest Chest inspection: Present normal inspection and symmetric chest wall rise; Absent tenderness Respiratory Respiratory exam: Present normal lung sounds bilaterally; Absent respiratory distress Cardiovascular Cardiovascular exam: Present regular rate and normal rhythm; Absent JVD Abdominal Exam Abdominal exam: Present soft and normal bowel sounds; Absent distention, tenderness or guarding Extremities Exam Extremities exam: Present normal inspection, full ROM and normal capillary refill; Absent calf tenderness Back Exam Back exam: Present normal inspection; Absent tenderness Neurological Exam Neurological exam: Present alert and oriented X3 Psychiatric Psychiatric exam: Present normal affect and normal mood Skin Skin exam: Present warm, dry, intact and normal color Lymphatic Lymphatic Findings: no adenopathy Medical Decision Making Medical Records Medical records reviewed: No I reviewed the patient's medical records. Hany Inquiry Pt receiving controlled substance: No Vital Signs: 08/27/23 08:20 Temperature 98.4 F Temperature Source Oral Pulse Rate [Right Brachial] 76 Respiratory Rate 20 Blood Pressure [Right Arm] 141/96 H Blood Pressure Mean [Right Arm] 111 Blood Pressure Source [Right Arm] Automatic Cuff Blood Pressure Position [Right Arm] Sitting 02 Sat by Pulse Oximetry 98 Oxygen Delivery Method Room Air Lab Data Lab Results 08/27/23 08:33: Strep Scn Rapid Clinic Negative Orders (Tests/Meds): ORDERS Category Date Time Status Strep Screen Confirmation Stat Micro 08/27/23 08:33 Received
[2023-08-27] MEDS: DEXAMETHASONE 4MG/ML 1ML VIAL 8 MG IM (09:12)
[2023-08-27 09:23] VITALS: BP 141/96; PULSE 76; RESP 20; TEMP 36.9; O2SAT 98
== END 2023-08-27 09:25 | disposition home or self-care (01) ==
PROVIDERS: Emergency Provider Nurse Practitioner Family; PCP Physician Assistant
DX: T78.40XA Allergy, unspecified, initial encounter (principal); R51.9 Headache, unspecified; R07.0 Pain in throat
CPT/HCPCS: 87880; 96372; 99212; 99214; G0463

== ENCOUNTER 2024-09-29 11:20 | Outpatient (CLI) | payer OTHER, SELFPAY ==
--- OUTSIDE RECORDS SUMMARY | 2024-08-22 12:45 | XMS_ITS | Encounter Summary ---
Author Organization [facility] Address [address] [place] [address] Care Team Providers Care Scallop Cutter Name Role Phone Corwin Duke MD Primary Care Provider + [phone] Manuela Farley DMD Unavailable [phone] Tracy Bae Unavailable Unavailable Encounter Details Date Type Department Care Team (Late st Contact Info) Description 08/22/2024 12:45 PM EDT Office Visit [facility] [address] [place] [address] William Fregoso Necrosis of dental pulp (Primary Dx) Social History Tobacco Use Types Packs/Day Years Used Date Smoking Tobacco: Never Smokeless Tobacco: Never Alcohol Use Standard Drinks/Week Comments Not Currently 0 (1 standard drink = 0.6 oz pur e alcohol) PHQ-2 Answer Date Recorded Patient Health Questionnaire-2 Score 0 10/02/2023 [place] Depression Scale Answer Date Recorded [place] Depression Scale Total 4 11/13/2021 The thought of harming myself has occurred to me . Never 11/13/2021 PHQ-2A Answer Date Recorded Patient Health Questionnaire-2 Score 0 03/13/2023 Comments No Sex and Gender Information Value Date Recorded Sex Assigned at Not on file Legal Sex Female 7:16 PM EDT Gender Identity Not on file Sexual Orientation Not on file documented as of this encounter Miscellaneous Notes * Progress Notes - William Fregoso - 08/22/2024 12:45 PM EDT Images from the original note were not included. Non-Surgical Endodontic Therapy Performed by: William Fregoso Attending: Dr. Fontana [facility] HX: [facility] No contraindications to TX. BP 119/70/71 Chief Complaint: I had a root canal on my front tooth and now its infected. RG interp: PARL RCT #6. Cold: - Percussion: ++ Palp: + Probin-3mm DX: Previously treated and Symptomatic apical periodontitis. Consent Obtained: The risks, benefits, indications, potential complications, and alternatives were explained to the patient and informed consent was obtained with good understanding. Description of procedure: Delivered 2 carpules of 4% Septocaine w/1:100,000 Epi 1.7 mL via Infiltration. RDI Achieved. WL determined via [place] sales consultant residential manager. Final WL - 26.0mm(single canal) Canals shaped to: Single Canal/Central Canal Medium File system used: StudyApps Gold Irrigants: 6% NaOCl; Sterile water, Q mix Activation: Endo Activator Dried canals. Conefit radiograph taken Placed corresponding size GP cones in each canal. Sealer: BC Sealer Seared off excess GP. Muslim: Composite Pt tolerated procedure well. Verified occlusion. Post Op Instructions given: Written and verbally Pt was informed of the importance to get a final roman catholic BERNY. Informed pt of increased risk offailure and fracture if he/she did not do this in a timely manner. Pt understood. Prognosis: Good Post Operative Pulpal DGX: Previous RCF: GP Complications: None Disposition: Pt to return for final roman catholic with general dentist/student dentist. Cosigned by Glenroy Fontana DMD at 08/23/2024 9:25 AM EDT Associated attestation - Glenroy Fontana DMD - 08/23/2024 9:25 AM EDT I saw and evaluated the patient with the graduate intern. I discussed the case with the graduate intern and agree with the findings and plan as documented. documented in this encounter Plan of Treatment Not on file documented as of this encounter Procedures Procedure Name Priority Date/Time Associated Diagnosis Comments 6 RETREATMENT OF PREVIOUS ROOT CANAL THERAPY - ANTERIOR Routine 08/22/2024 12:45 PM EDT Necrosis of dental pulp documented in this encounter Visit Diagnoses Diagnosis Necrosis of dental pulp- Primary documented in this encounter Additional Health Concerns Assessment Noted Time A fall risk assessment has been complete d for the patient 10/02/2023 4:18 PM EDT A Body Mass Index follow-up plan has been documented for the patient 08/22/2024 1:43 PM EDT documented as of this encounter Care Teams Scallop Cutter Relationship Specialty Start Date End Date Corwin Duke MD [address] [place] [address] PCP - General 08/17/20 Manuela Farley DMD [address] [phone] Dentist 02/22/24 Tracy Bae Dental Student Dental Improvement Nurse 02/22/24 documented as of this encounter
[2024-09-29 18:25] LABS: Basophils % 0.6 % (0.1-2.0); Eosinophils # 0.2 Kmm3 (0.0-0.4); Hematocrit 40.2 % (37.0-47.0); Hemoglobin 13.4 g/dL (12.2-16.2); Immature Granulocytes # 0.01 10^3uL; Immature Granulocytes % 0.2 %; Lymphocytes # 1.4 K/mm3 (0.7-4.5); Lymphocytes % 29.2 % (10-50); Mean Corpuscular HGB Conc 33.3 g/dL (31.8-35.4); Mean Corpuscular Hemoglobin 31.3 pg (27.0-31.2); Mean Corpuscular Volume 93.9 fl (81-99); Mean Platelet Volume 10.3 fl (7.4-10.4); Monocytes # 0.4 K/mm3 (0.1-1.0); Monocytes % 9.3 % (1.7-9.3); Neutrophils # 2.6 K/mm3 (1.8-7.8); Neutrophils % 55.7 % (37.0-80.0); Nucleated Red Blood Cells # 0 10^3/uL; Nucleated Red Blood Cells % 0 %; Platelet Count 295 K/mm3 (142-424); Red Blood Count 4.28 M/mm3 (4.20-5.40); Red Cell Distribution Width 12.6 % (11.5-17.5); Red Cell Distribution Width-SD 43.5 fL; White Blood Count 4.6 K/mm3 (4.8-10.8)
[2024-09-29 19:01] LABS: Hemoglobin A1C 6.2 % (4.0-6.0)
[2024-09-29 19:13] LABS: Alanine Aminotransferase 16 U/L (12-78); Albumin Level 4.7 g/dl (3.5-5.0); Albumin/Globulin Ratio 1.4 (1.1-1.8); Anion Gap 15.6 mEq/L (5-15); Aspartate Amino Transferase 24 U/L (14-36); Blood Urea Nitrogen 14 mg/dl (7-17); Calcium 10.2 mg/dl (8.4-10.2); Carbon Dioxide 26 mmol/L (22.0-30.0); Chloride 102 mmol/L (98-107); Chol/HDL Ratio 5.1 (1-3.5); Cholesterol 185 mg/dl (140-200); Estimated Glomerular Filt Rate 82 ml/min (>60); GFR (African American) 99 ML/MIN (>60); Globulin 3.4 g/dL (1.3-3.2); Glucose 87 mg/dl (74-100); HDL Cholesterol 36 mg/dl (40-60); Potassium 4.6 mmoL/L (3.5-5.1); Sodium 139 mmol/L (136-145); Total Protein,Serum 8.1 g/dl (6.3-8.2); Triglycerides 212 mg/dl (30-150); VLDL Cholesterol 42 mg/dL (0-40)
[2024-09-29 19:14] LABS: Alkaline Phosphatase 50 U/L (38-126); Bilirubin,Total 0.5 mg/dl (0.2-1.3)
[2024-09-29 19:24] LABS: Direct LDL Cholesterol 93.62 mg/dL (100-129)
[2024-09-29 19:30] LABS: 25-OH Vitamin D, Total 44.4 ng/mL (30-100)
[2024-09-29 19:44] LABS: Thyroid Stimulating Hormone 2.01 uIU/mL (0.465-4.68)
--- OUTSIDE RECORDS SUMMARY | 2024-09-30 10:20 | XMS_ITS | Clinical Summary ---
Author Organization Healthcare Address [address] [place] [address] Care Team Providers Care Integration Specialist Name Role Phone Corwin Duke MD Primary Care Provider [phone] Manuela Farley DMD Unavailable [phone] Tracy Bae Unavailable Unavailable Allergies Active Allergy Reactions Criticality Noted Date Comments Sulfa Drugs Rash High 09/03/2022 Sulfacetamide Unknown - Patient st ates they do not know rxn details Low 05/16/2015 Medications amoxicillin (Amoxil) 500 MG capsule Take by mouth. 4 Active Nurtec 75 MG tablet dispersible Take 1 tab PO every day prn for headache 15 tablet 2 4 Active Active Problems Problem Noted Date Diagnosed Date Essential hypertension 01/10/2022 Hypertension 01/10/2022 High blood pressure 01/10/2022 Borderline high blood pressure 01/10/2022 Grand multiparity 07/25/2021 Supervision of other normal , antepartu m 05/01/2021 Rubella non-immune status, antepartum 03/27/2021 Rh negative state in antepartum period Resolved Problems Problem Noted Date Diagnosed Date Resolved Date Hepatitis C virus carrier state 03/27/2021 05/01/2021 Encounters Date Type Department Care Team Description 08/22/2024 12:45 PM EDT Office Visit [facility] [address] [place] [address] William Fregoso Necrosis of dental pulp (Primary Dx) 08/22/2024 Travel from Last 3 Months Immunizations Immunization Administration Dates Next Due Rho (D) Immune Globulin 08/22/2021,07/09/2018,,05/29/2015 Tdap 07/09/2018 Family History Medical History Relation Name Comments Lung cancer Maternal Grandfather Skin cancer Maternal Grandmother Drug abuse Mother Relation Name Status Comments Daughter Alive Father Alive Maternal Grandfather Maternal Grandmother Mother Social History Tobacco Use Types Packs/Day Years Used Date Smoking Tobacco: Never Smokeless Tobacco: Never Tobacco Cessation:Counseling Given: No Alcohol Use Standard Drinks/Week Comments Not Currently 0 (1 standard drink = 0.6 oz pur e alcohol) PHQ-2 Answer Date Recorded Patient Health Questionnaire-2 Score 0 10/02/2023 [place] Depression Scale Answer Date Recorded [place] Depression Scale Total 4 11/13/2021 The thought of harming myself has occurred to me . Never 11/13/2021 PHQ-2A Answer Date Recorded Patient Health Questionnaire-2 Score 0 03/13/2023 Comments No Sex and Gender Information Value Date Recorded Sex Assigned at Not on file Legal Sex Female 7:16 PM EDT Gender Identity Not on file Sexual Orientation Not on file Last Filed Vital Signs Vital Sign Reading Time Taken Comments Blood Pressure 119/84 02/16/2024 1:58 PM EST Pulse 92 02/16/2024 1:58 PM EST Temperature 37 C (98.6 F) 10/02/2023 4:16 PM EDT Respiratory Rate 14 10/02/2023 4:16 PM EDT Oxygen Saturation 99% 10/02/2023 4:16 PM EDT Inhaled Oxygen Concentration - - Weight 70.2 kg (154 lb 12.2 oz) 10/02/2023 4:16 PM EDT Height 170.2 cm (5' 7 ) 10/02/2023 4:16 PM EDT Body Mass Index 24.24 10/02/2023 4:16 PM EDT Plan of Treatment Health Maintenance Due Date Last Done Comments Dental Prophylaxis 1990 [facility]-Infant/Child/Adol SDOH Screenings 1990 [facility]-Varicella Vaccines (1 of 2 - 13+ 2-dose series) 07/19/2003 HPV Vaccines (1 - 3-dose series) 2005 [facility]- SDOH Screenings 2008 [facility]-Adult SDOH Screenings 2008 [facility]-Hepatitis B Vaccines (1 of 3 - 19+ 3-dose series) 2009 [id number]-[id number]-28 Vaccine (2023- season) 2023 Dental Oral Exam 08/16/2024 02/16/2024 [facility]-Depression Screening 10/01/2024 10/02/2023, 08 [facility]-Influenza Vaccine (Season Ended) 2024 Dental X-Ray: Bitewings 02/16/2025 02/16/2024 [facility]-Pap Smear 01/02/2026 01/02/2023, 050 04/2022, 12/27/2021 Dental X-Ray: Full Mouth 02/16/2027 02/16/2024 [facility]-DTaP,Tdap,and Td Vaccines (2 - Td or Tdap) 07/09/2028 07/09/2018 [facility]-Cervical Cancer Screening 10/01/2028 [facility]-HPV/Cotest 10/01/2028 10/02/2023, 12/06, 08/04/2022, Additional history exists [facility]-Zoster Vaccines (1 of 2) 2040 [facility]-HIV Screening Completed 03/26/2021, , 09/04/2015 [facility]-Hepatitis C Screening Completed 2021, 03/26/2021, 03/26/2021, Additional history exists [facility]-HIB Vaccines Aged Out No longer e ligible based on patient's age to complete this topic [facility]-Hepatitis A Vaccines Aged Out No longer eligible based on patient's age to complete this topic [facility]-IPV Vaccines Aged Out No longer e ligible based on patient's age to complete this topic [facility]-Pneumococcal Vaccine: Pediatrics (0 to 5 Years) and At-Risk Patients (6 to 49 Years) Aged Out No longer eligible based on patient's age to complete this topic [facility]-Rotavirus Vaccines Aged Out No lo nger eligible based on patient's age to complete this topic Procedures Procedure Name Priority Date/Time Associated Diagnosis Comments 6 RETREATMENT OF PREVIOUS ROOT CANAL THERAPY - ANTERIOR Routine 08/22/2024 12:45 PM EDT Necrosis of dental pulp INTRAORAL - COMPLETE SERIES OF RADIOGRAPHIC IMAGES Routine 02/16/2024 1:30 PM EST History of root canal treatment COMPREHENSIVE ORAL EVALUATION - NEW OR ESTABLISHED PATIENT Routine 02/16/2024 1:30 PM EST History of root canal treatment REFERRED THINPREP PAP AND HPV (SO) Routine 10/02/2023 4:31 PM EDT Cervical high risk HPV (human papillomavirus) test positive PAP TEST - CYTOLOGY Routine 01/02/2023 4 :26 PM EDT LGSIL on Pap smear of cervix Cervical high risk HPV (human papillomavirus) test positive HEPATITIS C ANTIBODY W/REFLEX TO HCV QUANT PCR Routine 05/01/2021 HIV 1/2 ANTIBODY/ANTIGEN SCREEN WITH REFLEX TO HIV I/II DIFFERENTIATION Routine 03/26/2021 1:57 PM EST Supervision of other normal , antepartum from Last 3 Months or Most Recently Relevant to Health Maintenance Results * Referred ThinPrep Pap and HPV (SO) (10/02/2023 4:31 PM EDT) Pap, Source Cx/Vaginal 10/09/2023 6:52 PM EDT [facility] EER Referred ThinPrep Pap and HPV See Note 10/09/2023 6:52 PM EDT [facility]) PAP, THINPREP Normal 10/09/2023 6:52 PM EDT [facility]) High Risk HPV Normal 10/09/2023 6:52 PM EDT [facility]) Swab Vaginal and cervical cytologic material / Unknown Non-blood Collection / Unknown 10/02/2023 4:31 PM EDT 10/03/2023 1:15 PM EDT Narrative [facility] ([facility]) - 10/09/2023 6:52 PM EDT Authorized individuals can access the [facility] Enhanced Report using the following link: [email or web address] Performed By: [facility] [address] [place] [address] Fire Prevention Inspector: Victor Hugo Matthews MD, PhD CLIA Number: [id number] SPECIMEN PART A. Cervical, Endocervical, Vaginal, ThinPrep Pap (Senior Java Software Engineer) CYTOLOGY HX Date of Last Menstrual Period: n FINAL DIAGNOSIS INTERPRETATION: Negative for Intraepithelial Lesion or Malignancy. SPECIMEN ADEQUACY:Satisfactory for evaluation. Endocervical/transformation zone component present. Electronically Signed Out : Arely Mixon Performed by: [facility] [address] [place] [address] [place] [address] Joseline Patel MD, HR-HPV: Negative Test performed by the FDA-approved Xocketsgic (Gen-Probe) APTIMA HPV test, which detects HPV genotypes: 16, 18, 31, 33, 35, 39, 45, 51, 52, 56, 58, 59, 66, and 68. Performed by: [facility] [address] [place] [address] [place] [address] Joseline Patel MD, Blaze Argueta MD LAB REF LAB BLOOD AND FLUID ORD Final Result [facility] Re.MuGUME) [address] [phone] * (ABNORMAL) Pap Test (01/02/2023 4:26 PM EDT) Case Report Cytology Case: [id number] Authorizing Provider: Blaze Argueta MD Collected: 01/02/2023 1626 Ordering Location: Obstetrics & Gynecology Received: 01/05/2023 0959 First Screen: Ronit Fraire Pathologist: Moises Guerra MD Specimen: ThinPrep Pap Test, Liquid-Based Cervical/Vaginal 01/09/2023 11:55 AM EDT [facility] Interpretation LOW GRADE SQUAMOUS INTRAEPITHELIAL LESION WITH ATYPICAL SQUAMOUS CELLS, CANNOT EXCLUDE HIGH GRADE SQUAMOUS INTRAEPITHELIAL LESION (LSIL + ASC-H), SEE COMMENT(A) 01/09/2023 11:55 AM EDT [facility] at 1155 EDT Specimen Adequacy Satisfactory for evaluation; endocervical/goetz sformation zone component present. Slide imaged by the ThinPrep Imaging system and selected 22 hall reviewed then full manual screening. 01/09/2023 11:55 AM EDT [facility] Comment Follow-up biopsies in women with LSIL + ASC-H may detect HSIL in 30-40% of patients. Correlate with results of HPV testing. 01/09/2023 11:55 AM EDT [facility] Cervical cytology is a screening test primarily for squamous cancers and precursors and has associated false negative and positive results. New technologies such as liquid based sampling may decrease but will not eliminate all false negative results. Regular screening and follow-up of unexplained clinical signs and symptoms are recommended to minimize false negative results. Please see the ASCCP website (www.asccp.org)fo r followup recommendations. If HPV testing was requested, correlation with the results is suggested (please call Microbiology at [phone] for results). 01/09/2023 11:55 AM EDT [facility] Menstrual Status Cyclic 01/10/20 11:55 AM EDT [facility] Contraceptive History Other 01/09/2023 11:55 AM EDT [facility] Comment:Tubal Screening Type Previous or Suspected Abnormality 01/09/2023 11:55 AM EDT [facility] HPV Testing Requested? Request HPV Testing Regardless of Pap Test Findings 01/09/2023 11:55 AM EDT [facility] Previous Cancer History No 01/09/2023 11:55 AM EDT [facility] Clinical Information R87.612 - LGSIL on Pap smear of cervix [ICD-10-CM] R87.810 - Cervical high risk HPV (human papillomavirus) test positive [ICD-10-CM] 01/09/2023 11:55 AM EDT [facility] Last Menstrual Period 12/19/2022 01/09/2023 11:55 AM EDT [facility] Swab Vaginal and cervical cytologic material / Unknown Non-blood Collection / Unknown 01/02/2023 4:26 PM EDT 01/05/2023 9:59 AM EDT Blaze Argueta MD LAB CYTOLOGY ORDERABLES Final R [facility] [address] [place] [address] * Hepatitis C Antibody (05/01/2021) External Hepatitis C Antibody (HCV Ab) Negative Comment:Hep C initially posi tive with confirmation neg Blood Venous blood specimen / Unknown Hina Freedman MD LAB BLOOD ORDERABLES [facility] Result * HIV 1 & 2 Antibody/Antigen Screen (03/26/2021 1:57 PM EST) HIV 1 & 2 Antibody/Anti gen Screen Nonreactive Nonreactive 03/26/2021 7:32 PM EST [facility] Blood Venous blood specimen / Unknown Venipuncture / Unknown 03/26/2021 1:57 PM EST 03/26/2021 6:09 PM EST Nessa Bolden APRN, CNM LAB BLOOD ORDERABLE S Final Result [facility] [address] [place] [address] from Last 3 Months or Most Recently Relevant to Health Maintenance Insurance [employer] [facility] MEDICAID [facility] MEDICAID DENTAL Care Teams Integration Specialist Relationship Specialty Start Date End Date Corwin Duke MD [address] [place] [address] PCP - General 08/17/20 Manuela Farley DMD [address] [address] Dentist 02/22/24 Tracy Bae Dental Student Dental Associate Chemist 02/22/24
--- OUTSIDE RECORDS SUMMARY | 2024-09-30 10:20 | XMS_ITS | Encounter Summary ---
Author Organization [facility] Address [address] [place] [address] Care Team Providers Care Financial Administrator Name Role Phone Corwin Duke MD Primary Care Provider + [phone] Manuela Farley DMD Unavailable [phone] Tracy Bae Unavailable Unavailable Encounter Details Date Type Department Care Team (Latest Contact Info) Description 08/22/2024 Travel Social History Tobacco Use Types Packs/Day Years Used Date Smoking Tobacco: Never Smokeless Tobacco: Never Alcohol Use Standard Drinks/Week Comments Not Currently 0 (1 standard drink = 0.6 oz pur e alcohol) PHQ-2 Answer Date Recorded Patient Health Questionnaire-2 Score 0 10/02/2023 [place] Depression Scale Answer Date Recorded [place] Depression Scale Total 4 11/13/2021 The thought of harming myself has occurred to me . Never 11/13/2021 PHQ-2A Answer Date Recorded Patient Health Questionnaire-2 Score 0 03/13/2023 Comments No Sex and Gender Information Value Date Recorded Sex Assigned at Not on file Legal Sex Female 7:16 PM EDT Gender Identity Not on file Sexual Orientation Not on file documented as of this encounter Plan of Treatment Not on file documented as of this encounter Visit Diagnoses Not on filedocumented in this encounter Additional Health Concerns Assessment Noted Time A fall risk assessment has been complete d for the patient 10/02/2023 4:18 PM EDT A Body Mass Index follow-up plan has been documented for the patient 08/22/2024 1:43 PM EDT documented as of this encounter Care Teams Financial Administrator Relationship Specialty Start Date End Date Corwin Duke MD [address] [phone] PCP - General 08/17/20 Manuela Farley, NELA [address] [place] [phone] Dentist 02/22/24 Tracy Bae Dental Student Dental Information Technology Teacher 02/22/24 documented as of this encounter
== END 2024-09-29 23:59 | disposition home or self-care (01) ==
LOC: LAB.DROPOF 09-30 10:14
PROVIDERS: PCP Family Medicine; Visit Provider Family Medicine
DX: Z00.00 Encounter for general adult medical examination without abnormal findings (principal); F41.9 Anxiety disorder, unspecified
CPT/HCPCS: 80053; 80061; 82306; 83036; 84443; 85025

== ENCOUNTER 2025-02-10 11:16 | Outpatient (CLI) | payer OTHER, SELFPAY ==
--- OUTSIDE RECORDS SUMMARY | 2025-01-02 14:45 | XMS_ITS | Encounter Summary ---
Author Organization Healthcare Address [address] [place] [address] Care Team Providers Care Performance Analyst Name Role Phone Manuela Farley DMD Unavailable [phone] Tracy Bae Unavailable Unavailable Abner Hooper APRN Primary Care Provider [phone] Reason for Visit * Reason Comments office visit Pt doing good Encounter Details Date Type Department Care Team (Late st Contact Info) Description 01/02/2025 3:45 PM EDT Procedure Visit Obstetrics & Gynecology [address] [place] [address] Blaze Argueta MD [address] [place] [address] Irregular menstruation, unspecified (Primary Dx); Mixed stress and urge urinary incontinence; Dysmenorrhea; Enlarged uterus; Thickened endometrium Social History Tobacco Use Types Packs/Day Years Used Date Smoking Tobacco: Never Smokeless Tobacco: Never Tobacco Cessation:Counseling Given: Not Answered Alcohol Use Standard Drinks/Week Comments Not Currently 0 (1 standard drink = 0.6 oz pur e alcohol) PHQ-2 Answer Date Recorded Patient Health Questionnaire-2 Score 0 01/02/2025 [place] Depression Scale Answer Date Recorded [place] Depression Scale Total 4 11/13/2021 The thought of harming myself has occurred to me . Never 11/13/2021 PHQ-9 Answer Date Recorded Patient Health Questionnaire-9 Score 0 12/02/2024 PHQ-2A Answer Date Recorded Patient Health Questionnaire-2 Score 0 03/13/2023 Comments No Sex and Gender Information Value Date Recorded Sex Assigned at Not on file Legal Sex Female 7:16 PM EDT Gender Identity Not on file Sexual Orientation Not on file documented as of this encounter Last Filed Vital Signs Vital Sign Reading Time Taken Comments Blood Pressure 130/88 01/02/2025 3:44 PM EDT Pulse 81 01/02/2025 3:44 PM EDT Temperature - - Respiratory Rate 20 01/02/2025 3:44 PM EDT Oxygen Saturation 96% 01/02/2025 3:44 PM EDT Inhaled Oxygen Concentration - - Weight 72 kg (158 lb 11.7 oz) 01/02/2025 3:44 PM EDT Height 170.2 cm (5' 7 ) 01/02/2025 3:44 PM EDT Body Mass Index 24.86 01/02/2025 3:44 PM EDT documented in this encounter Functional Status * Over the past 2 weeks, how often have you been bothered by any of the following problems? Question Answer Date of Assessment Author Little interest or pleasure in doing things Not at all 01/02/2025 3:47 PM EDT Liliam Zaldivar Feeling down, depressed, or hopeless Not at all 01/02/2025 3:47 PM EDT Liliam Zaldivar Patient Health Questionnaire -2 Score 0 01/02/2025 3:47 PM EDT Liliam Zaldivar documented as of this encounter Miscellaneous Notes * Progress Notes - Blaze Argueta MD - 01/02/2025 3:45 PM EDTAssociated Order(s): Endometrial biopsy Patient ID: Rohith Jasso is a 34 y.o. female. Encounter Diagnoses Name Primary? Irregular menstruation, unspecified Yes Mixed stress and urge urinary incontinence Dysmenorrhea Enlarged uterus Thickened endometrium Endometrial biopsy Performed by: Blaze Argueta MD Authorized by: Blaze Argueta MD Consent: Consent obtained: Verbal and written Consent given by: Patient Procedural risks discussed: Bleeding, infection and repeat procedure Patient questions answered: yes Patient agrees, verbalizes understanding, and wants to proceed: yes Instructions and paperwork completed: yes Indication: Indications comment: Irregular menses Pre-procedure: Pre-procedure timeout performed: yes Procedure: Procedure: endometrial biopsy with Pipelle A bivalve speculum was placed in the vagina: yes Cervix cleaned and prepped: yes A paracervical block was performed: no An intracervical block was performed: no The cervix was dilated: no Uterus sounded: yes Uterus sound depth (cm): 8 Specimen collected: specimen collected and sent to pathology Patient tolerated procedure well with no complications: yes Findings: Uterus size: 9-10 weeks Cervix: normal Adnexa: normal Comments: Procedure comments: Schedule PREOP for TVH documented in this encounter Plan of Treatment Upcoming Encounters Date Type Department Care Team (Late st Contact Info) Description 02/22/2025 10:30 AM EST Office Visit Obstetrics & Gynecology [address] [place] [address] Blaze Argueta MD [address] [place] [address] documented as of this encounter Procedures Procedure Name Priority Date/Time Associated Diagnosis Comments SURGICAL PATHOLOGY EXAM Routine 01/02/2025 4:01 PM EDT Irregular menstruation, unspecified Enlarged uterus ENDOMETRIAL BIOPSY Routine 01/02/2025 3: 45 PM EDT Irregular menstruation, unspecified documented in this encounter Results * Surgical Pathology Exam (01/02/2025 4:01 PM EDT) Case Report Surgical Pathology Case: [id number] Authorizing Provider: Blaze Argueta MD Collected: 01/02/2025 1601 Ordering Location: Obstetrics & Gynecology Received: 01/02/2025 1843 Pathologist: Moises Guerra MD Specimen: Endometrium, endo biopsy 01/05/2025 12:03 PM EDT [facility] Final Diagnosis ENDOMETRIUM, BIOPSY: - BENIGN PROLIFERATIVE ENDOMETRIUM. - NO EVIDENCE OF ATYPIA OR MALIGNANCY. 01/05/2025 12:03 PM EDT [facility] at 1203 EDT Clinical Information aub N92.6 - Irregular menstruation, unspecified [ICD-10-CM] N85.2 - Enlarged uterus [ICD-10-CM] 01/05/2025 12:03 PM EDT [facility] Gross Description A. ENDO BIOPSY Received in formalin labeled e ndo biopsy is an aggregate of white-javier soft tissue fragments measuring 2.7 x 1.3 x 0.3 cm. Entirely submitted in cassette A1. Cold Time: 0 Rebekah Cruz Marinatey 01/05/2025 12:03 PM EDT [facility] Note: A resident was involved in the service. I attest I examined the relevant preparations for the specimens and confirmed the diagnosis or interpretation. 01/05/2025 12:03 PM EDT [facility] Tissue Endometrial structure / Unknown Non-blood Collection / Unknown 01/02/2025 4:01 PM EDT 01/02/2025 6:45 PM EDT Blaze Argueta MD LAB PATHOLOGY ORDERABLES Final Result [facility] [address] [place] [address] * ENDOMETRIAL BIOPSY (01/02/2025 3:45 PM EDT) Narrative Blaze Argueta MD - 01/02/2025 3:45 PM EDT Blaze Argueta MD 01/02/2025 4:02 PM Endometrial biopsy Performed by: Blaze Argueta MD Authorized by: Blaze Argueta MD Consent: Consent obtained: Verbal and written Consent given by: Patient Procedural risks discussed: Bleeding, infection and repeat procedure Patient questions answered: yes Patient agrees, verbalizes understanding, and wants to proceed: yes Instructions and paperwork completed: yes Indication: Indications comment: Irregular menses Pre-procedure: Pre-procedure timeout performed: yes Procedure: Procedure: endometrial biopsy with Pipelle A bivalve speculum was placed in the vagina: yes Cervix cleaned and prepped: yes A paracervical block was performed: no An intracervical block was performed: no The cervix was dilated: no Uterus sounded: yes Uterus sound depth (cm): 8 Specimen collected: specimen collected and sent to pathology Patient tolerated procedure well with no complications: yes Findings: Uterus size: 9-10 weeks Cervix: normal Adnexa: normal Comments: Procedure comments: Schedule PREOP for TVH us Blaze Argueta MD IN CLINIC/BEDSIDE ORDERABLES Fi nal Result documented in this encounter Visit Diagnoses Diagnosis Irregular menstruation, unspecified- Primary Mixed stress and urge urinary incontinence Mixed incontinence urge and stress (male)(female) Dysmenorrhea Enlarged uterus Hypertrophy of uterus Thickened endometrium Nonspecific (abnormal) findings on radiological and other examination of genitourinary organs documented in this encounter Additional Health Concerns Assessment Noted Time PHQ-9 Depression Total Score: 0 12/03/19 1:35 PM EDT A fall risk assessment has been complete d for the patient 01/02/2025 3:47 PM EDT A Body Mass Index follow-up plan has been documented for the patient 01/02/2025 4:02 PM EDT documented as of this encounter Care Teams Performance Analyst Relationship Specialty Start Date End Date Abner Hooper APRN [address] [place] [id number] PCP - General 12/14/24 Manuela Farley DMD [address] [phone] Dentist 02/22/24 Tracy Bae Dental Student Dental Fit Model 02/22/24 documented as of this encounter
--- OUTSIDE RECORDS SUMMARY | 2025-01-23 12:15 | XMS_ITS | Encounter Summary ---
Author Organization [facility] Address [address] [place] [address] Care Team Providers Care Biomaterials Engineer Name Role Phone Manuela Farley DMD Unavailable [phone] Tracy Bae Unavailable Unavailable Abner Hooper APRN Primary Care Provider [phone] Encounter Details Date Type Department Care Team (Late st Contact Info) Description 01/23/2025 1:15 PM EDT Office Visit Obstetrics & Gynecology [address] [place] [address] Blaze Argueta MD [address] [place] [address] Irregular menstruation, unspecified (Primary Dx); Dysmenorrhea; Enlarged uterus; Thickened endometrium; Atypical squamous cells of undetermined significance (ASCUS) on Papanicolaou smear of cervix Social History Tobacco Use Types Packs/Day Years Used Date Smoking Tobacco: Never Smokeless Tobacco: Never Alcohol Use Standard Drinks/Week Comments Not Currently 0 (1 standard drink = 0.6 oz pur e alcohol) PHQ-2 Answer Date Recorded Patient Health Questionnaire-2 Score 0 01/23/2025 [place] Depression Scale Answer Date Recorded [place] Depression Scale Total 4 11/13/2021 The thought of harming myself has occurred to me . Never 11/13/2021 PHQ-9 Answer Date Recorded Patient Health Questionnaire-9 Score 0 01/23/2025 PHQ-2A Answer Date Recorded Patient Health Questionnaire-2 Score 0 03/13/2023 Comments No Sex and Gender Information Value Date Recorded Sex Assigned at Not on file Legal Sex Female 7:16 PM EDT Gender Identity Not on file Sexual Orientation Not on file documented as of this encounter Last Filed Vital Signs Vital Sign Reading Time Taken Comments Blood Pressure 124/85 01/23/2025 1:09 PM EDT Pulse 82 01/23/2025 1:09 PM EDT Temperature 36.4 C (97.5 F) 01/23/2025 1:09 PM EDT Respiratory Rate - - Oxygen Saturation 98% 01/23/2025 1:09 PM EDT Inhaled Oxygen Concentration - - Weight 71 kg (156 lb 8.4 oz) 01/23/2025 1:09 PM EDT Height - - Body Mass Index 24.52 01/02/2025 3:44 PM EDT documented in this encounter Functional Status * Over the past 2 weeks, how often have you been bothered by any of the following problems? Question Answer Date of Assessment Author Little interest or pleasure in doing things Not at all 01/23/2025 1:10 PM EDT Makayla Villalobos Feeling down, depressed, or hopeless Not at all 01/23/2025 1:10 PM EDT Makayla Villalobos Patient Health Questionnaire -2 Score 0 01/23/2025 1:10 PM EDT Makayla Villalobos * Question Answer Date of Assessment Author Trouble falling or staying a sleep, or sleeping too much Not at all 01/23/2025 1:10 PM EDT Makayla Villalobos Feeling tired or having true le energy Not at all 01/23/2025 1:10 PM EDT Makayla Villalobos Poor appetite or overeating Not at all 01/23/2025 1: 10 PM EDT Makayla Villalobos Feeling bad about yourself - or that you are a failure or have let yourself or your family down Not at all 01/23/2025 1:10 PM EDT Makayla Villalobos Trouble concentrating on thi ngs, such as reading the newspaper or watching television Not at all 01/23/2025 1:10 PM EDT Makayla Villalobos Moving or speaking so slowly that other people could have noticed? Or the opposite - being so fidgety or restless that you have been moving around a lot more than usual. Not at all 01/23/2025 1:10 PM EDT Makayla Villalobos Thoughts that you would be b arvin off or hurting yourself in some way Not at all 01/23/2025 1:10 PM EDT Makayla Villalobos Patient Health Questionnaire -9 Score 0 01/23/2025 1:10 PM EDT Makayla Villalobos * How difficult have these problems made it for you to do your work, take care of things at home, or get along with other people? Answer Date of Assessment Author Not difficult at all 01/23/2025 1:10 PM EDT Makayla Constantino documented as of this encounter Miscellaneous Notes * Progress Notes - Blaze Argueta MD - 01/23/2025 1:15 PM EDT Gynecology Note Subjective No chief complaint on file. Rohith Jasso is a 34 y.o. ( x 4) here for a f/u gynecologic visit. H/O Pap 09/2023 - wnl w/ NEG HPV - had abnl paps - LG/HG +HPV - COLPO w/ TIMOTHY 3 - Had LEEP 04/2023. Current Pap 12/02/2024 - ASCUS with HPV pending H/O BTL. NO 1st degree FMHx of female cancers NO b/b/b issues Nutrition/Exercise/Supplements discussed Periods - monthly - 3-5 days - severe dysmenorrhea - spots 1 w prior to menses + with intercourse Take Nurtec for migraines Some Mixed UI - not wearing pads/diapers NEON MOLDER TVUS - Enlarged UT - prob adenomyosis - Thickened EMS 2 cm EMBX OK Discussed [place] options - for TVH. All questions asked & answered to her satisfaction - desires to proceed - understands r/b/a. Past Medical History She has a past medical history of Complete or unspecified spontaneous without complication, Conversions - Other, Dental abscess, Dental caries, Encounter for other general counseling and advice on procreation, Encounter for test, result positive, Encounter for routine follow-up, Jaw pain, Lyme disease, unspecified, Migraine, unspecified, not intractable, without status migrainosus, Other specified related conditions, unspecified trimester, Personal history of other diseases of the female genital tract, Personal history of urinary (tract) infections, Recurrent loss, Rubella non-immune status, antepartum (03/27/21), Rubella non-immune status, a ntepartum (03/27/21), TMJ dysfunction, and Uterine size-date discrepancy, unspecified trimester. Past Surgical History She has a past surgical history that includes Umbilical hernia repair; Tubal ligation; Root canal; orthodontic treatment; and Palo tooth extraction. Social History She reports that she has never smoked. She has never used smokeless tobacco. She reports that she does not currently use alcohol. She reports that she does not use drugs. Family History Her family history includes Drug abuse in her mother; Lung cancer in her maternal grandfather; Skincancer in her maternal grandmother. Current Medications She has a current medication list which includes the following prescription(s): nurtec. Allergies Allergies Sulfa drugs and Sulfacetamide Review of Systems Constitutional: Negative. HENT: Negative. Eyes: Negative. Respiratory: Negative. Cardiovascular: Negative. Gastrointestinal: Negative. Endocrine: Negative. Genitourinary: Positive for menstrual problem and pelvic pain. Musculoskeletal: Negative. Skin: Negative. Allergic/Immunologic: Negative. Neurological: Negative. Hematological: Negative. Psychiatric/Behavioral: Negative. All other systems reviewed and are negative. Objective Visit Vitals BP 124/85 Pulse 82 Temp 36.4 ??C (97.5 ??F) Body mass index is 24.52 kg/m??. Physical Exam Constitutional: Appearance: Normal appearance. She is normal weight. HENT: Head: Normocephalic and atraumatic. Right Ear: External ear normal. Left Ear: External ear normal. Nose: Nose normal. Cardiovascular: Rate and Rhythm: Normal rate and regular rhythm. Heart sounds: Normal heart sounds. Pulmonary: Effort: Pulmonary effort is normal. Breath sounds: Normal breath sounds. Musculoskeletal: General: Normal range of motion. Cervical back: Normal range of motion. Neurological: General: No focal deficit present. Mental Status: She is alert and oriented to person, place, and time. Skin: General: Skin is warm and dry. Psychiatric: Mood and Affect: Mood normal. Behavior: Behavior normal. Thought Content: Thought content normal. Judgment: Judgment normal. Vitals and nursing note reviewed. Assessment/Plan Assessment & Plan Irregular menstruation, unspecified Dysmenorrhea Enlarged uterus Thickened endometrium Atypical squamous cells of undetermined significance (ASCUS) on Papanicolaou smear of cervix [place] options discussed Consented for TVH Labs ordered PREOP at [facility] now A total of 20 minutes was spent on this visit with at least more than 50% of the encounter spent incounseling and/or coordinating care including reviewing previous notes, counseling the patient on their identified issues as indicated in the note, discussing previous and/or ordered tests or imaging, prescribing/refilling medications, and documenting the findings in this note, as well as laying out a specific plan of action for this patient. documented in this encounter Plan of Treatment Upcoming Encounters Date Type Department Care Team (Late st Contact Info) Description 02/22/2025 10:30 AM EST Office Visit Obstetrics & Gynecology [address] [place] [address] Blaze Argueta MD [address] [place] [address] documented as of this encounter Visit Diagnoses Diagnosis Irregular menstruation, unspecified- Primary Dysmenorrhea Enlarged uterus Hypertrophy of uterus Thickened endometrium Nonspecific (abnormal) findings on radiological and other examination of genitourinary organs Atypical squamous cells of undetermined significance (ASCUS) on Papanicolaou smear of cervix documented in this encounter Additional Health Concerns Assessment Noted Time PHQ-9 Depression Total Score: 0 01/24/20 1:10 PM EDT A fall risk assessment has been complete d for the patient 01/23/2025 1:10 PM EDT A Body Mass Index follow-up plan has been documented for the patient 01/23/2025 1:15 PM EDT documented as of this encounter Care Teams Biomaterials Engineer Relationship Specialty Start Date End Date Abner Hooper APRN [address] [place] [id number] PCP - General 12/14/24 Manuela Farley DMD [address] [phone] Dentist 02/22/24 Tracy Bae Dental Student Dental Motorcycle Assembler 02/22/24 documented as of this encounter
--- OUTSIDE RECORDS SUMMARY | 2025-02-13 11:29 | XMS_ITS | Encounter Summary ---
Author Organization [facility] Address [address] [place] [address] Care Team Providers Care Merchandising Execution Manager Name Role Phone Manuela Farley DMD Unavailable [phone] Tracy Bae Unavailable Unavailable Abner Hooper APRN Primary Care Provider [phone] Encounter Details Date Type Department Care Team (Late st Contact Info) Description 01/05/2025 Results Follow-Up Obstetrics & Gynecology [address] [place] [address] Blaze Argueta MD [address] [place] [address] Social History Tobacco Use Types Packs/Day Years Used Date Smoking Tobacco: Never Smokeless Tobacco: Never Alcohol Use Standard Drinks/Week Comments Not Currently 0 (1 standard drink = 0.6 oz pur e alcohol) PHQ-2 Answer Date Recorded Patient Health Questionnaire-2 Score 0 01/02/2025 [place] Depression Scale Answer Date Recorded [place] Depression Scale Total 4 11/13/2021 The thought [...] as of this encounter Plan of Treatment Upcoming Encounters Date Type Department Care Team (Late st Contact Info) Description 02/22/2025 10:30 AM EST Office Visit Obstetrics & Gynecology [address] [place] [address] Blaze Argueta MD [address] [place] [address] documented as of this encounter [...] documented as of this encounter Care Teams Merchandising Execution Manager Relationship Specialty Start Date End Date Abner Hooper APRN [address] [place] [id number] PCP - General 12/14/24 Manuela Farley DMD [address] [phone] Dentist 02/22/24 Tracy Bae Dental Student Dental Family Law Attorney 02/22/24 documented as of this encounter
--- OUTSIDE RECORDS SUMMARY | 2025-02-13 11:29 | XMS_ITS | Encounter Summary ---
Author Organization [facility] Address [address] [place] [address] Care Team Providers Care Sample Display Preparer Name Role Phone Manuela Farley DMD Unavailable [phone] Tracy Bae Unavailable Unavailable Abner Hooper APRN Primary Care Provider [phone] Encounter Details Date Type Department Care Team (Latest Contact Info) Description 01/25/2025 Travel Social History Tobacco Use Types Packs/Day Years Used Date Smoking Tobacco: Never Smokeless Tobacco: Never Alcohol Use Standard Drinks/Week Comments Not Currently 0 (1 standard drink = 0.6 oz pur e alcohol) PHQ-2 Answer Date Recorded Patient Health Questionnaire-2 Score 0 01/23/2025 [place] Depression Scale Answer Date Recorded [place] Depression Scale Total 4 11/13/2021 The thought [...] EST Office Visit Obstetrics & Gynecology [address] [place] [address] Blaze Argueta MD [address] [place] [address] documented as of this encounter [...] documented as of this encounter Care Teams Sample Display Preparer Relationship Specialty Start Date End Date Abner Hooper APRN [address] [place] [id number] PCP - General 12/14/24 Manuela Farley DMD [address] [place] [phone] Dentist 02/22/24 Tracy Bae Dental Student Dental Awning Maker 02/22/24 documented as of this encounter
--- OUTSIDE RECORDS SUMMARY | 2025-02-13 11:29 | XMS_ITS | Clinical Summary ---
Author Organization Healthcare Address [address] [place] [address] Care Team Providers Care Curriculum And Instruction Director Name Role Phone Manuela Farley DMD Unavailable [phone] Tracy Bae Unavailable Unavailable Abner Hooper BUNCH BREAKER MACHINE OPERATOR Primary Care Provider [phone] Allergies Active Allergy Reactions Criticality Noted Date Comments Sulfa Drugs Rash High 09/03/2022 Sulfacetamide Unknown - Patient st ates they do not know rxn details Low 05/16/2015 Medications Nurtec 75 MG orally disintegrating tablet Take 1 tab PO every day prn for headache 15 tablet 2 5 Active Active Problems Problem Noted Date Diagnosed Date Essential hypertension 01/10/2022 Hypertension 01/10/2022 High blood pressure 01/10/2022 Borderline high blood pressure 01/10/2022 Grand multiparity 07/25/2021 Supervision of other normal , antepartu m 05/01/2021 Rh negative state in antepartum period 1 Resolved Problems Problem Noted Date Diagnosed Date Resolved Date Hepatitis C virus carrier state 03/27/2021 05/01/2021 Rubella non-immune status, antepartum 03/27/2021 01/08/2025 Encounters Date Type Department Care Team Description 02/10/2025 Telephone Obstetrics & Gynecology [address] [place] [address] Blaze Argueta MD 01/25/2025 Travel 01/25/2025 Orders Only External Location [address] [place] [address] Blaze Argueta MD 01/23/2025 1:15 PM EDT Office Visit Obstetrics & Gynecology [address] [place] [address] Blaze Argueta MD Irregular menstruation, unspecified (Primary Dx); Dysmenorrhea; Enlarged uterus; Thickened endometrium; Atypical squamous cells of undetermined significance (ASCUS) on Papanicolaou smear of cervix 01/23/2025 Travel 01/11/2025 Telephone Obstetrics & Gynecology [address] [place] [address] Blaze Argueta MD HCN - Patient Message 01/09/2025 Telephone Obstetrics & Gynecology [address] [place] [address] Blaze Argueta MD 01/05/2025 Results Follow-Up Obstetrics & Gynecology [address] [place] [address] Blaze Argueta MD 01/04/2025 Telephone Obstetrics & Gynecology [address] [place] [address] [place] [address] Blaze Argueta MD 01/02/2025 3:45 PM EDT Procedure Visit Obstetrics & Gynecology [address] [place] [address] Blaze Argueta MD Irregular menstruation, unspecified (Primary Dx); Mixed stress and urge urinary incontinence; Dysmenorrhea; Enlarged uterus; Thickened endometrium 01/02/2025 Travel 12/14/2024 Results Follow-Up Obstetrics & Gynecology [address] [place] [address] Blaze Argueta MD 12/14/2024 Telephone Obstetrics & Gynecology [address] [place] [address] Blaze Argueta MD 12/13/2024 4:30 PM EDT Ancillary Procedure Obstetrics & Gynecology [address] [place] [address] Irregular menstruation, unspecified 12/13/2024 3:45 PM EDT Office Visit Obstetrics & Gynecology [address] [place] [address] Blaze Argueta MD Irregular menstruation, unspecified (Primary Dx); Mixed stress and urge urinary incontinence; Dysmenorrhea; Enlarged uterus; Thickened endometrium; Atypical squamous cells of undetermined significance (ASCUS) on Papanicolaou smear of cervix 12/13/2024 Travel 12/02/2024 1:30 PM EDT Procedure Visit Obstetrics & Gynecology [address] [place] [address] Blaze Argueta MD Encounter for annual routine gynecological examination (Primary Dx); Mixed stress and urge urinary incontinence; Irregular menstruation, unspecified; Dysmenorrhea 12/02/2024 Travel from Last 3 Months Immunizations Immunization [...] Recorded Patient Health Questionnaire-2 Score 0 01/23/2025 Ravena Depression Scale Answer Date Recorded [place]ena Depression Scale Total 4 11/13/2021 The thought [...] F) 01/23/2025 1:09 PM EDT Respiratory Rate 20 01/02/2025 3:44 PM EDT Oxygen Saturation 98% 01/23/2025 1:09 PM EDT Inhaled Oxygen Concentration - - Weight 71 kg (156 lb 8.4 oz) 01/23/2025 1:09 PM EDT Height 170.2 cm (5' 7 ) 01/02/2025 3:44 PM EDT Body Mass Index 24.52 01/02/2025 3:44 PM EDT Plan of Treatment Upcoming Encounters Date Type Department Care Team (Late st Contact Info) Description 02/22/2025 10:30 AM EST Office Visit Obstetrics & Gynecology [address] [place] [address] Blaze Argueta MD [address] [place] [address] Health Maintenance Due Date Last Done Comments Dental Prophylaxis 1990 [facility]-Infant/Child/Adol SDOH Screenings 1990 [facility]-Varicella Vaccines (1 of 2 - 13+ 2-dose series) 07/19/2003 [facility]- SDOH Screenings 2008 [facility]-Adult SDOH Screenings 2008 [facility]-Hepatitis B Vaccines (1 of 3 - 19+ 3-dose series) 2009 HPV Vaccines (1 - 3-dose SCDM series) 2017 Dental Oral Exam 08/16/2024 02/16/2024 [id number]-[id number]-50 Vaccine ( - season) 2024 [facility]-Influenza Vaccine (#1) 2024 Dental X-Ray: Bitewings 02/16/2025 02/16/2024 [facility]-Depression Screening 01/23/2026 025, 01/23/2025, 11/13/2021 Dental X-Ray: Full Mouth 02/16/2027 02/16/2024 [facility]-Pap Smear 12/03/2027 12/02/2024, 06/2 11/2023, 01/02/2023, Additional history exists [facility]-DTaP,Tdap,and Td Vaccines (2 - Td or Tdap) 07/09/2028 07/09/2018 [facility]-Cervical Cancer Screening 12/02/2029 [facility]-HPV/Cotest 12/02/2029 12/02/2024, 06/2 11/2023, 01/02/2023, Additional history exists [facility]-Zoster Vaccines (1 of [...] Procedure Name Priority Date/Time Associated Diagnosis Comments HEMOGLOBIN AND HEMATOCRIT, BLOOD Routine 01/25/2025 4:21 AM EDT SURGICAL PATHOLOGY EXAM Routine 01/03/20 4:01 PM EDT Irregular menstruation, unspecified Enlarged uterus ENDOMETRIAL BIOPSY Routine 01/02/2025 3: 45 PM EDT Irregular menstruation, unspecified CBC W/O DIFFERENTIAL Routine 12/13/2024 4:40 PM EDT Irregular menstruation, unspecified FREE T4, PLASMA Routine 12/13/2024 4:40 PM EDT Irregular menstruation, unspecified TSH Routine 12/13/2024 4:40 PM EDT Irregular menstruation, unspecified US PELVIS TRANSVAGINAL Routine 4:25 PM EDT Irregular menstruation, unspecified PAP TEST - CYTOLOGY Routine 12/02/2024 1 :40 PM EDT Encounter for annual routine gynecological examination HIGH RISK HUMAN PAPILLOMAVIRUS (HPV) PCR WITH GENOTYPING Routine 12/02/2024 1:40 PM EDT Encounter for annual routine gynecological examination INTRAORAL - COMPLETE SERIES OF RADIOGRAPHIC IMAGES Routine 02/16/2024 1:30 PM EST History of root canal treatment COMPREHENSIVE ORAL EVALUATION - NEW OR ESTABLISHED PATIENT Routine 02/16/2024 1:30 PM EST History of root canal treatment HEPATITIS C ANTIBODY W/REFLEX TO HCV QUANT PCR Routine 05/01/2021 HIV 1/2 ANTIBODY/ANTIGEN SCREEN WITH REFLEX TO HIV I/II DIFFERENTIATION Routine 03/26/2021 1:57 PM EST Supervision of other normal , antepartum from Last 3 Months or Most Recently Relevant to Health Maintenance Results * (ABNORMAL) Hemoglobin and Hematocrit, Blood (01/25/2025 4:21 AM EDT) External Hemoglobin 10.7(L) 12.5 - 16.0 gm/dl [facility] External Hematocrit 33.3(L) 37.0 - 47.0 % [facility] 01/25/2025 4:21 AM EDT 01/25/2025 4:53 AM EDT us Blaze Argueta MD LAB BLOOD ORDERABLES Final Resu lt [facility] * Surgical Pathology Exam (01/02/2025 4:01 PM EDT) Case Report Surgical Pathology Case: [id number] Authorizing Provider: Blaze Argueta MD Collected: 01/02/2025 1601 Ordering Location: Obstetrics & Gynecology Received: 01/02/2025 2847 Pathologist: Moises Guerra MD Specimen: Endometrium, endo biopsy 01/05/2025 12:03 PM EDT [facility] Final Diagnosis ENDOMETRIUM, BIOPSY: - BENIGN PROLIFERATIVE ENDOMETRIUM. - NO EVIDENCE OF ATYPIA OR MALIGNANCY. 01/05/2025 12:03 PM EDT [facility] at 1203 EDT Clinical Information aub N92.6 - Irregular menstruation, unspecified [ICD-10-CM] N85.2 - Enlarged uterus [ICD-10-CM] 01/05/2025 12:03 PM EDT [facility] Gross Description A. ENDO BIOPSY Received in formalin labeled e ndo biopsy is an aggregate of white-javier soft tissue fragments measuring 2.7 x 1.3 x 0.3 cm. Entirely submitted in cassette A1. Cold Time: 0 Rebekah Cruz Marinatekahlil 01/05/2025 12:03 PM EDT [facility] Note: A resident was involved in the service. I attest I examined the relevant preparations for the specimens and confirmed the diagnosis or interpretation. 01/05/2025 12:03 PM EDT [facility] Tissue Endometrial structure / Unknown Non-blood Collection / Unknown 01/02/2025 4:01 PM EDT 01/02/2025 6:45 PM EDT us Blaze Argueta MD LAB PATHOLOGY ORDERABLES Final Result [facility] [address] [place] [address] * ENDOMETRIAL BIOPSY (01/02/2025 3:45 PM EDT) Narrative Blzae Argueta MD - 01/02/2025 3:45 PM EDT [...] Comments: Procedure comments: Schedule PREOP for [facility] Blaze Argueta MD IN CLINIC/BEDSIDE ORDERABLES Fi nal Result * CBC (12/13/2024 4:40 PM EDT) WBC Count 6.20 3.70 - 10.30 10*3/uL LAB HEMATOLOGY METHOD 12/13/2024 7:17 PM EDT [facility] RBC Count 4.51 3.90 - 5.20 10*6/uL LAB HEMATOLOGY METHOD 12/13/2024 7:17 PM EDT [facility] HGB 13.7 11.2 - 15.7 g/dL LAB HEMATOLOGY METHOD 12/13/2024 7:17 PM EDT [facility] HCT 42.2 34.0 - 45.0 % LAB HEMATOLOGY METHOD 12/13/2024 7:17 PM EDT [facility] Platelet Count 289 155 - 369 10*3/uL LAB HEMATOLOGY METHOD 12/13/2024 7:17 PM EDT [facility] MCV 94 79 - 98 fL LAB HEMATOLOGY METHOD 12/13/2024 7:17 PM EDT [facility] MCH 30.4 26.0 - 32.0 pg LAB HEMATOLOGY METHOD 12/13/2024 7:17 PM EDT [facility] MCHC 32.5 30.7 - 35.5 g/dL LAB HEMATOLOGY METHOD 12/13/2024 7:17 PM EDT [facility] RDW 12.5 11.5 - 14.5 % LAB HEMATOLOGY METHOD 12/13/2024 7:17 PM EDT [facility] MPV 10.4 8.8 - 12.5 fL LAB HEMATOLOGY METHOD 12/13/2024 7:17 PM EDT [facility] nRBC 0.0 <=0.0 per 100 WBCs LAB HEMATOLOGY METHOD 12/13/2024 7:17 PM EDT [facility] Blood Venous blood specimen / Unknown Venipuncture / Unknown 12/13/2024 4:40 PM EDT 12/13/2024 6:52 PM EDT Result Kal Argueta MD LAB BLOOD ORDERABLES Final Resu lt Performing Organization Address [facility] Co de Phone Number [facility] [address] [place] [address] * TSH (12/13/2024 4:40 PM EDT) Thyroid Stimulating Hormone, Plasma 2.15 0.40 - 4.20 uIU/mL 12/14/2024 9:46 AM EDT [facility] Blood Venous blood specimen / Unknown Venipuncture / Unknown 12/13/2024 4:40 PM EDT 12/14/2024 9:21 AM EDT Narrative [facility] - 12/14/2024 9:46 AM EDT Trimester Specific Ranges TSH ( IU/mL) 1st Trimester 0.1 - 3.0 2nd Trimester 0.19 - 4.06 3rd Trimester 0.3 - 3.7 Result Kal Argueta MD LAB BLOOD ORDERABLES Final Resu lt Performing Organization Address [facility] [place] [address] * T4, free (12/13/2024 4:40 PM EDT) Free T4, Plasma 1.1 0.8 - 1.7 ng/dL 12/14/2024 9:46 AM EDT [facility] Blood Venous blood specimen / Unknown Venipuncture / Unknown 12/13/2024 4:40 PM EDT 12/14/2024 9:21 AM EDT Narrative [facility] - 12/14/2024 9:46 AM EDT Free T4 Trimester Specific Ranges 1st Trimester 0.9 - 1.50 ng/dL 2nd Trimester 0.7 - 1.40 ng/dL 3rd Trimester 0.7 - 1.24 ng/dL Result Kal Argueta MD LAB BLOOD ORDERABLES Final Resu lt [facility] [address] [place] [address] * US Pelvis Transvaginal (12/13/2024 4:25 PM EDT) Anatomical Region Laterality Modality Pelvis Ultrasound 12/13/2024 4:34 PM EDT Impressions 12/13/2024 4:42 PM EDT The OB Ultrasound you requested has been resulted. Please navigate to the Imaging tab in [employer] for review. This message has been generated by the interface. Narrative Procedure Note Blaze Argueta MD - 12/13/2024 IMPRESSION: The OB Ultrasound you requested has been resulted. Please navigate to theImaging tab in [employer] for review. This message has been generated by theinterface. Result Kal Argueta MD IMG US PROCEDURES Final Result * High Risk Human Papillomavirus (HPV) PCR with Genotyping (12/02/2024 1:40 PM EDT) High Risk Human Papillomavirus (HPV) PCR Interpretation Not Detected Not Detected 12/14/2024 1:41 PM EDT [facility] High Risk Human Papillomavirus (HPV) PCR Genotype 16 Not Detected Not Detected 12/14/2024 1:41 PM EDT [facility] High Risk Human Papillomavirus (HPV) PCR Genotype 18 Result Not Detected Not Detected 12/14/2024 1:41 PM EDT [facility] (HPV) Other High Risk HPV Genotypes (Not 16 or 18) Not Detected Not Detected 12/14/2024 1:41 PM EDT [facility] Thin Prep Cervix uteri structure / Unknown 12/02/2024 1:40 PM EDT 12/13/2024 11:31 AM EDT Narrative [facility] - 12/14/2024 1:41 PM EDT This test is performed by the Juventino 4800 instrument Real Time PCR HPV DNA and genotype testing. This test is FDA approved for use with cervical and endocervical specimens. This test is used for clinical purposes. It should not be regarded as investigational or for research. The test specifically identifies HPV-16 and HPV-18 while concurrently detecting the rest of the high risk types (31, 33, 35, 39, 45, 51, 52, 56, 58, 59, 66 and 68). The [facility] Clinical Microbiology Laboratory is certified under the Clinical Laboratory Improvement Amendments of 1988 (CLIA-88) as qualified to perform high complexity clinical laboratory testing. Blaze Argueta MD LAB MICROBIOLOGY - [facility] Final Result [facility] [address] [place] [address] * (ABNORMAL) Pap Test (12/02/2024 1:40 PM EDT) Case Report Cytology Case: [id number] Authorizing Provider: Blaze Argueta MD Collected: 12/02/2024 1340 Ordering Location: Obstetrics & Gynecology Received: 12/06/2024 1037 First Screen: Misa Saucedo Pathologist: Karyn Mendez MD Specimen: ThinPrep Pap Test, Liquid-Based Cervical/Vaginal 12/12/2024 12:[address] [facility] Interpretation ATYPICAL SQUAMOUS CELLS OF UNDETERMINED SIGNIFICANCE (ASCUS)(A) 12/12/2024 12:[address] [facility] at 1230 EDT Specimen Adequacy Satisfactory for evaluation; endocervical/tra nsformation zone component present. Slide imaged by the ThinPrep Imaging system and selected 22 hall reviewed then full manual screening. 12/12/2024 12:[address] [facility] Cervical cytology is a screening test primarily for squamous cancers and precursors and has associated false negative and positive results. New technologies such as liquid based sampling may decrease but will not eliminate all false negative results. Regular screening and follow-up of unexplained clinical signs and symptoms are recommended to minimize false negative results. Please see the ASCCP website (www.asccp.org)f or followup recommendations. If HPV testing was requested, correlation with the results is suggested (please call Microbiology at [phone] for results). 12/12/2024 12:30 PM EDT [facility] Menstrual Status Cyclic 12/13/19 12:30 PM EDT [facility] History of Hysterectomy Not Applicable 12/12/2024 12:30 PM EDT [facility] Contraceptive History Not Applicable 12/12/2024 12:30 PM EDT [facility] Screening Type Previous or Suspected Abnormality 12/12/2024 12:30 PM EDT [facility] HPV Testing Requested? Request HPV Testing Regardless of Pap Test Findings 12/12/2024 12:30 PM EDT [facility] Previous Cancer History No 12/12/2024 12:30 PM EDT [facility] Previous or Suspected Abnormality Previous Abnormal Pap 12/12/2024 12:30 PM EDT [facility] Clinical Information Z01.419 - Encounter for annual routine gynecological examination [ICD-10-CM] 12/12/2024 12:30 PM EDT [facility] Last Menstrual Period 11/04/2024 12/12/2024 12:30 PM EDT [facility] Thin Prep Vaginal and cervical cytologic material / Unknown 12/02/2024 1:40 PM EDT 12/06/2024 10:37 AM EDT us Blaze Argueta MD LAB CYTOLOGY ORDERABLES Final R esult [facility] [address] [place] [address] * Hepatitis C Antibody (05/01/2021) External Hepatitis C Antibody (HCV Ab) Negative Comment:Hep C initially posi tive with confirmation neg Blood Venous blood specimen / Unknown [facility] Provider LAB BLOOD ORDERABLES Final R esult * HIV 1 & 2 Antibody/Antigen Screen (03/26/2021 1:57 PM EST) HIV 1 & 2 Antibody/Anti gen Screen Nonreactive Nonreactive 03/26/2021 7:32 PM EST [facility] Blood Venous blood specimen / Unknown Venipuncture / Unknown 03/26/2021 1:57 PM EST 03/26/2021 6:09 PM EST Nessa Escamilla Kimi DORADO, CNChristo LAB BLOOD ORDERABLE S Final Result [facility] [address] [place] [address] from Last 3 Months or Most Recently Relevant to Health Maintenance Insurance [employer] [facility] MEDICAID [employer] Medicaid Dental Care Teams Curriculum And Instruction Director Relationship Specialty Start Date End Date Abner Hooper APRN [address] [place] [address] PCP - General 12/14/24 Manuela Farley DMD [address] [phone] Dentist 02/22/24 Tracy Bae Dental Student Dental Union Contract Representative 02/22/24
--- OUTSIDE RECORDS SUMMARY | 2025-02-13 11:29 | XMS_ITS | Encounter Summary ---
Author Organization Healthcare Address [address] [place] [address] Care Team Providers Care Network Security Architect Name Role Phone Manuela Farley DMD Unavailable [phone] Tracy Bae Unavailable Unavailable Abner Hooper APRN Primary Care Provider [phone] Reason for Visit * Reason Onset Date Comments HCN - Patient Message 01/11/2025 Encounter Details Date Type Department Care Team (Late st Contact Info) Description 01/11/2025 Telephone Obstetrics & Gynecology [address] [place] [address] Blaze Argueta MD [address] [place] [address] HCN - Patient Message Social History Tobacco Use Types Packs/Day Years Used Date Smoking Tobacco: Never Smokeless Tobacco: Never Alcohol Use Standard Drinks/Week Comments Not Currently 0 (1 standard drink = 0.6 oz pur e alcohol) PHQ-2 Answer Date Recorded Patient Health Questionnaire-2 Score 0 01/23/2025 [place] Depression Scale Answer Date Recorded [place] Depression Scale Total 4 11/13/2021 The thought [...] on file documented as of this encounter Functional Status * Over the past 2 weeks, how often have you been bothered by any of the following problems? Question Answer Date of Assessment Author Little interest or pleasure in doing things Not at all 01/23/2025 1:10 PM Makayla Farr Feeling down, depressed, or hopeless Not at all 01/23/2025 1:10 PM KIYAT Makayla Villalobos Patient Health Questionnaire -2 Score 0 01/23/2025 1:10 PM EDT Makayla Villalobos * Question Answer Date of Assessment Author Trouble falling or staying a sleep, or sleeping too much Not at all 01/23/2025 1:10 PM Makayla Farr Feeling tired or having true le energy Not at all 01/23/2025 1:10 PM Makayla Farr Poor appetite or overeating Not at all 01/23/2025 1: 10 PM Makayla Farr Feeling bad about yourself - or that you are a failure or have let yourself or your family down Not at all 01/23/2025 1:10 PM Makayla Farr Trouble concentrating on thi ngs, such as reading the newspaper or watching television Not at all 01/23/2025 1:10 PM Makayla Farr Moving or speaking so slowly that other people could have noticed? Or the opposite - being so fidgety or restless that you have been moving around a lot more than usual. Not at all 01/23/2025 1:10 PM Makayla Farr Thoughts that you would be b arvin off or hurting yourself in some way Not at all 01/23/2025 1:10 PM Makayla Farr Patient Health Questionnaire -9 Score 0 01/23/2025 1:10 PM Makayla Farr * How difficult have these problems made it for you to do your work, take care of things at home, or get along with other people? Answer Date of Assessment Author Not difficult at all 01/23/2025 1:10 PM Makayla Patel documented as of this encounter Miscellaneous Notes * Telephone Encounter - Araceli Broderick - 01/11/2025 3:57 PM EDT 01/11/25 pt request to be done in time and completed with preop (including at [facility]) by 3pmZMT * Telephone Encounter - Cal Cazares - 01/11/2025 3:47 PM EDT Clinical Concern/Question Reason for Call: pt is needing a morning appt for her pre op appt please per pt Best contact number: [phone] (mobile) Optimal time of day to reach caller: ANYTIME Additional comments/information from caller: None Note: Please do not reply to this message. Follow-up communication and further actions as a result of this message need to be communicated with the patient directly, if the patient is not active onMyChart. If the patient is active on MyChart, they will receive notification of the communication/outcome via Home Inventory S[pecialists. documented in this encounter Plan of Treatment Upcoming Encounters Date Type Department Care Team (Late st Contact Info) Description 02/22/2025 10:30 AM EST Office Visit Obstetrics & Gynecology [address] [place] [address] Blaze Argueta MD [address] [place] [address] documented as of this encounter Visit Diagnoses Not on filedocumented in this encounter Additional Health Concerns Assessment Noted Time PHQ-9 Depression Total Score: 0 12/03/19 25 1:35 PM EDT A fall risk assessment has been complete d for the patient 01/02/2025 3:47 PM EDT A Body Mass Index follow-up plan has been documented for the patient 01/02/2025 4:02 PM EDT documented as of this encounter Care Teams Network Security Architect Relationship Specialty Start Date End Date Abner Hooper APRN [address] [place] [id number] PCP - General 12/14/24 Manuela Farley DMD [address] [address] Dentist 02/22/24 Tracy Bae Dental Student Dental Anesthetic Assistant 02/22/24 documented as of this encounter
--- OUTSIDE RECORDS SUMMARY | 2025-02-13 11:29 | XMS_ITS | Encounter Summary ---
Author Organization Healthcare Address [address] [place] [address] Care Team Providers Care Peanut Separator Name Role Phone Manuela Farley DMD Unavailable [phone] Tracy Bae Unavailable Unavailable Abner Hooper APRN Primary Care Provider [phone] Encounter Details Date Type Department Care Team (Latest Contact Info) Description 01/23/2025 Travel Social History Tobacco Use Types Packs/Day Years Used Date Smoking Tobacco: Never Smokeless Tobacco: Never Alcohol Use Standard Drinks/Week Comments Not Currently 0 (1 standard drink = 0.6 oz pur e alcohol) PHQ-2 Answer Date Recorded Patient Health Questionnaire-2 Score 0 01/23/2025 [place] Depression Scale Answer Date Recorded [place] Depression Scale Total 4 11/13/2021 The thought [...] much Not at all 01/23/2025 1:10 PM KIYAT Makayla Villalobos Feeling tired or having true le energy Not at all 01/23/2025 1:10 PM EDT Makayla Villalobos Poor appetite or overeating Not at all 01/23/2025 1: 10 PM EDT Makayla Villalobos Feeling bad about yourself - or that you are a failure or have let yourself or your family down Not at all 01/23/2025 1:10 PM KIYAT Makayla Villalobos Trouble concentrating on thi ngs, such as reading the newspaper or watching television Not at all 01/23/2025 1:10 PM KIYAT Makayla Villalobos Moving or speaking so slowly that other people could have noticed? Or the opposite - being so fidgety or restless that you have been moving around a lot more than usual. Not at all 01/23/2025 1:10 PM KIYAT Makayla Villalobos Thoughts that you would be b arvin off or hurting yourself in some way Not at all 01/23/2025 1:10 PM Makayla Farr Patient Health Questionnaire -9 Score 0 01/23/2025 1:10 PM KIYAT Makayla Villalobos * How difficult have these problems made it for you to do your work, take care of things at home, or get along with other people? Answer Date of Assessment Author Not difficult at all 01/23/2025 1:10 PM EDT Makayla Constantino documented as of this encounter Plan of Treatment Upcoming Encounters Date Type Department Care Team (Late st Contact Info) Description 02/22/2025 10:30 AM EST Office Visit Obstetrics & Gynecology [address] [place] [address] Blaze Argueta MD [address] [place] [address] documented as of this encounter [...] documented as of this encounter Care Teams Peanut Separator Relationship Specialty Start Date End Date Abner Hooper APRN [address] [place] [address] PCP - General 12/14/24 Manuela Farley DMD [address] [place] [phone] Dentist 02/22/24 Tracy Bae Dental Student Dental Causticiser 02/22/24 documented as of this encounter
--- OUTSIDE RECORDS SUMMARY | 2025-02-13 11:29 | XMS_ITS | Encounter Summary ---
Author Organization [facility] Address [address] [place] [address] Care Team Providers Care Coil Winding Supervisor Name Role Phone Manuela Farley DMD Unavailable [phone] Tracy Bae Unavailable Unavailable Abner Hooper APRN Primary Care Provider [phone] Encounter Details Date Type Department Care Team (Late st Contact Info) Description 12/14/2024 Results Follow-Up Obstetrics & Gynecology [address] [place] [address] Blaze Argueta MD [address] [place] [address] Social History Tobacco Use Types Packs/Day Years Used Date Smoking Tobacco: Never Smokeless Tobacco: Never Alcohol Use Standard Drinks/Week Comments Not Currently 0 (1 standard drink = 0.6 oz pur e alcohol) PHQ-2 Answer Date Recorded Patient Health Questionnaire-2 Score 0 12/13/2024 [place] Depression Scale Answer Date Recorded [place] Depression Scale Total 4 11/13/2021 The thought [...] EST Office Visit Obstetrics & Gynecology [address] [place] [address] Blaze Argueta MD [address] [place] [address] documented as of this encounter Visit Diagnoses Not on filedocumented in this encounter Additional Health Concerns Assessment Noted Time PHQ-9 Depression Total Score: 0 12/03/19 1:35 PM EDT A fall risk assessment has been complete d for the patient 12/13/2024 4:19 PM EDT A Body Mass Index follow-up plan has been documented for the patient 12/13/2024 4:42 PM EDT documented as of this encounter Care Teams Coil Winding Supervisor Relationship Specialty Start Date End Date Abner Hooper APRN [address] [place] [address] PCP - General 12/14/24 Manuela Farley DMD [address] [phone] Dentist 02/22/24 Tracy Bae Dental Student Dental Seamark Advanced Operator Maintainer 02/22/24 documented as of this encounter
--- OUTSIDE RECORDS SUMMARY | 2025-02-13 11:29 | XMS_ITS | Encounter Summary ---
Author Organization [facility] Address [address] [place] [address] Care Team Providers Care Youth Corrections Officer Name Role Phone Manuela Farley DMD Unavailable [phone] Tracy Bae Unavailable Unavailable Abner Hooper APRN Primary Care Provider [phone] Encounter Details Date Type Department Care Team (Late st Contact Info) Description 01/25/2025 Orders Only External Location [address] [place] [address] Blaze Argueta MD [address] [place] [address] Social History Tobacco Use Types Packs/Day Years Used Date Smoking Tobacco: Never Smokeless Tobacco: Never Alcohol Use Standard Drinks/Week Comments Not Currently 0 (1 standard drink = 0.6 oz pur e alcohol) PHQ-2 Answer Date Recorded Patient Health Questionnaire-2 Score 0 01/23/2025 [place] Depression Scale Answer Date Recorded [place] Depression Scale Total 4 11/13/2021 The thought [...] EST Office Visit Obstetrics & Gynecology [address] [place] [address] Blaze Argueta MD [address] [place] [address] documented as of this encounter Procedures Procedure Name Priority Date/Time Associated Diagnosis Comments HEMOGLOBIN AND HEMATOCRIT, BLOOD Routine 01/25/2025 4:21 AM EDT documented in this encounter Results * (ABNORMAL) Hemoglobin and Hematocrit, Blood (01/25/2025 4:21 AM EDT) External Hemoglobin 10.7(L) 12.5 - 16.0 gm/dl [facility] External Hematocrit 33.3(L) 37.0 - 47.0 % [facility] 01/25/2025 4:21 AM EDT 01/25/2025 4:53 AM EDT us Blaze Argueta MD LAB BLOOD ORDERABLES Final Resu lt [facility] documented in this encounter Visit Diagnoses Not on filedocumented in this encounter Additional Health Concerns Assessment Noted Time PHQ-9 Depression Total Score: 0 01/24/20 1:10 PM EDT A fall risk assessment has been complete d for the patient 01/23/2025 1:10 PM EDT A Body Mass Index follow-up plan has been documented for the patient 01/23/2025 1:15 PM EDT documented as of this encounter Care Teams Youth Corrections Officer Relationship Specialty Start Date End Date Abner Hooper APRN [address] [place] [address] PCP - General 12/14/24 Manuela Farley DMD [address] [phone] Dentist 02/22/24 Tracy Bae Dental Student Dental Slate Roofer 02/22/24 documented as of this encounter
--- OUTSIDE RECORDS SUMMARY | 2025-02-13 11:29 | XMS_ITS | Encounter Summary ---
Author Organization Healthcare Address [address] [place] [address] Care Team Providers Care Coal Tram Driver Name Role Phone Manuela Farley DMD Unavailable [phone] Tracy Bae Unavailable Unavailable Abner Hooper APRN Primary Care Provider [phone] Encounter Details Date Type Department Care Team (Latest Contact Info) Description 01/02/2025 Travel Social History Tobacco Use Types Packs/Day Years Used Date Smoking Tobacco: Never Smokeless Tobacco: Never Alcohol Use Standard Drinks/Week Comments Not Currently 0 (1 standard drink = 0.6 oz pur e alcohol) PHQ-2 Answer Date Recorded Patient Health Questionnaire-2 Score 0 01/02/2025 [place] Depression Scale Answer Date Recorded [place] Depression Scale Total 4 11/13/2021 The thought [...] Liliam Zaldivar documented as of this encounter Plan of Treatment Upcoming Encounters Date Type Department Care Team (Late st Contact Info) Description 02/22/2025 10:30 AM EST Office Visit Obstetrics & Gynecology [address] [place] [address] Blaze Argueta MD [address] [place] [address] documented as of this encounter [...] documented as of this encounter Care Teams Coal Tram Driver Relationship Specialty Start Date End Date Abner Hooper APRN [address] [place] [address] PCP - General 12/14/24 Manuela Farley DMD [address] [phone] Dentist 02/22/24 Tracy Bae Dental Student Dental Dairy Store Manager 02/22/24 documented as of this encounter
--- OUTSIDE RECORDS SUMMARY | 2025-02-13 11:29 | XMS_ITS | Encounter Summary ---
Author Organization Healthcare Address [address] [place] [address] Care Team Providers Care Channel Process Supervisor Name Role Phone Manuela Farley DMD Unavailable [phone] Tracy Bae Unavailable Unavailable Abner Hooper APRN Primary Care Provider [phone] Encounter Details Date Type Department Care Team (Late st Contact Info) Description 02/10/2025 Telephone Obstetrics & Gynecology [address] [place] [address] Blaze Argueta MD [address] [place] [address] Social History Tobacco Use Types Packs/Day Years Used Date Smoking Tobacco: Never Smokeless Tobacco: Never Alcohol Use Standard Drinks/Week Comments Not Currently 0 (1 standard drink = 0.6 oz pur e alcohol) PHQ-2 Answer Date Recorded Patient Health Questionnaire-2 Score 0 01/23/2025 [place] Depression Scale Answer Date Recorded [place] Depression Scale Total 4 11/13/2021 The thought [...] encounter Miscellaneous Notes * Telephone Encounter - Trudi Ashley - 02/10/2025 8:05 AM EST Clinical Concern/Question Reason for Call: pt had a hysterectomy on 01/24 and now believes she has a UTI. Pt would like to know what she should do. Please call Best contact number: [phone] (mobile) Optimal time of day to reach caller: ANYTIME Additional comments/information from caller: None Note: Please do not reply to this message. Follow-up communication and further actions as a result of this message need to be communicated with the patient directly, if the patient is not active onMyChart. If the patient is active on MyChart, they will receive notification of the communication/outcome via Newvemt. documented in this encounter Plan of Treatment Upcoming Encounters Date Type Department Care Team (Late st Contact Info) Description 02/22/2025 10:30 AM EST Office Visit Obstetrics & Gynecology [address] [place] [address] Blaze Argueta MD [address] [place] [address] documented as of this encounter [...] documented as of this encounter Care Teams Channel Process Supervisor Relationship Specialty Start Date End Date Abner Hooper APRN [address] [place] [address] PCP - General 12/14/24 Manuela Farley DMD [address] [place] [phone] Dentist 02/22/24 Tracy Bae Dental Student Dental Manual Control Auger Press Operator 02/22/24 documented as of this encounter
--- OUTSIDE RECORDS SUMMARY | 2025-02-13 11:29 | XMS_ITS | Encounter Summary ---
Author Organization Healthcare Address [address] [place] [address] Care Team Providers Care Antenna Engineer Name Role Phone Manuela Farley DMD Unavailable [phone] Tracy Bae Unavailable Unavailable Abner Hooper APRN Primary Care Provider [phone] Encounter Details Date Type Department Care Team (Late st Contact Info) Description 01/09/2025 Telephone Obstetrics & Gynecology [address] [place] [address] Blaze Argueta MD [address] [place] [address] Social History Tobacco Use Types Packs/Day Years Used Date Smoking Tobacco: Never Smokeless Tobacco: Never Alcohol Use Standard Drinks/Week Comments Not Currently 0 (1 standard drink = 0.6 oz pur e alcohol) PHQ-2 Answer Date Recorded Patient Health Questionnaire-2 Score 0 01/23/2025 [place] Depression Scale Answer Date Recorded [place] Depression Scale Total 4 11/13/2021 The thought [...] energy Not at all 01/23/2025 1:10 PM KIYAT Makayla Villalobos Poor appetite or overeating Not [...] way Not at all 01/23/2025 1:10 PM KIYAT Makayla Villalobos Patient Health Questionnaire -9 Score [...] encounter Miscellaneous Notes * Telephone Encounter - Makayla Villalobos - 01/09/2025 3:21 PM EDT Called patient she is aware * Telephone Encounter - Flores Coffey - 01/09/2025 2:44 PM EDT Status Update Call #1 1st call regarding the status of the initial request. Best contact number: [phone] (mobile) Optimal time of day to reach caller: OTHER: after 4:00. Additional comments/information from caller: Pt is returning call. Please call. Note: Please do not reply to this message. Follow-up communication and further actions as a result of this message need to be communicated with the patient directly, if the patient is not active onMyChart. If the patient is active on MyChart, they will receive notification of the communication/outcome via Orlumethart. * Telephone Encounter - Makayla Villalobos - 01/09/2025 2:39 PM EDT Called patient and lm for her to return my call * Telephone Encounter - Suly Salas - 01/09/2025 9:51 AM EDT Clinical Concern/Question Reason for Call: Pt is calling about results Best contact number: [phone] (mobile) Optimal time of day to reach caller: ANYTIME Additional comments/information from caller: None Note: Please do not reply to this message. Follow-up communication and further actions as a result of this message need to be communicated with the patient directly, if the patient is not active onMyChart. If the patient is active on MyChart, they will receive notification of the communication/outcome via MyChart. documented in this encounter Plan of Treatment Upcoming Encounters Date Type Department Care Team (Late st Contact Info) Description 02/22/2025 10:30 AM EST Office Visit Obstetrics & Gynecology [address] [place] [address] Blaze Argueta MD [address] [place] [address] documented as of this encounter [...] documented as of this encounter Care Teams Antenna Engineer Relationship Specialty Start Date End Date Abner Hooper APRN [address] [place] [address] PCP - General 12/14/24 Manuela Farley DMD [address] [phone] Dentist 02/22/24 Tracy Bae Dental Student Dental Mortgage Clerk 02/22/24 documented as of this encounter
--- OUTSIDE RECORDS SUMMARY | 2025-02-13 11:29 | XMS_ITS | Encounter Summary ---
Author Organization Healthcare Address [address] [place] [address] Care Team Providers Care Manager Quality Improvement Name Role Phone Manuela Farley DMD Unavailable [phone] Tracy Bae Unavailable Unavailable Abner Hooper APRN Primary Care Provider [phone] Encounter Details Date Type Department Care Team (Late st Contact Info) Description 01/04/2025 Telephone Obstetrics & Gynecology [address] [place] [address] Blaze Argueta MD [address] [place] [address] Social History Tobacco Use Types Packs/Day Years Used Date Smoking Tobacco: Never Smokeless Tobacco: Never Alcohol Use Standard Drinks/Week Comments Not Currently 0 (1 standard drink = 0.6 oz pur e alcohol) PHQ-2 Answer Date Recorded Patient Health Questionnaire-2 Score 0 01/23/2025 [place] Depression Scale Answer Date Recorded [place] Depression Scale Total 4 11/13/2021 The thought [...] encounter Miscellaneous Notes * Telephone Encounter - Flores Coffey - 01/04/2025 2:36 PM EDT Clinical Concern/Question Reason for Call: Pt is asking for her FMLA paperwork to be faxed back to her once completed. Fax: [phone]. Please call. Best contact number: [phone] (mobile) Optimal time of day to reach caller: ANYTIME Additional comments/information from caller: None Note: Please do not reply to this message. Follow-up communication and further actions as a result of this message need to be communicated with the patient directly, if the patient is not active onMyChart. If the patient is active on MyChart, they will receive notification of the communication/outcome via Softfrontt. documented in this encounter Plan of Treatment Upcoming Encounters Date Type Department Care Team (Late st Contact Info) Description 02/22/2025 10:30 AM EST Office Visit Obstetrics & Gynecology [address] [place] [address] Blaze Argueta MD [address] [place] [address] documented as of this encounter [...] documented as of this encounter Care Teams Manager Quality Improvement Relationship Specialty Start Date End Date Abner Hooper APRN [address] [place] [address] PCP - General 12/14/24 Manuela Farley DMD [address] [place] [phone] Dentist 02/22/24 Tracy Bae Dental Student Dental Optical Fabricator 02/22/24 documented as of this encounter
--- OUTSIDE RECORDS SUMMARY | 2025-02-13 11:29 | XMS_ITS | Encounter Summary ---
Author Organization Healthcare Address [address] [place] [address] Care Team Providers Care Rock Breaker Name Role Phone Manuela Farley DMD Unavailable [phone] Tracy Bae Unavailable Unavailable Abner Hooper APRN Primary Care Provider [phone] Encounter Details Date Type Department Care Team (Late st Contact Info) Description 12/14/2024 Telephone Obstetrics & Gynecology [address] [place] [address] Blaze Argueta MD [address] [place] [address] Social History Tobacco Use Types Packs/Day Years Used Date Smoking Tobacco: Never Smokeless Tobacco: Never Alcohol Use Standard Drinks/Week Comments Not Currently 0 (1 standard drink = 0.6 oz pur e alcohol) PHQ-2 Answer Date Recorded Patient Health Questionnaire-2 Score 0 01/02/2025 [place] Depression Scale Answer Date Recorded [place] Depression Scale Total 4 11/13/2021 The thought [...] encounter Miscellaneous Notes * Telephone Encounter - Valeria Suggs - 12/14/2024 9:36 AM EDT Clinical Concern/Question Reason for Call: Pt is calling to set up a hysterectomy surgery. Pt is currently scheduled for a BXon 01/02 and is wondering if doing the hysterectomy will make it so she does not have to do the BX?Please call pt to schedule surgery and to let her know if she still is needing the BX. Thank you Best contact number: [phone] (mobile) Optimal time of day to reach caller: ANYTIME Additional comments/information from caller: Not Applicable Note: Please do not reply to this message. Follow-up communication and further actions as a result of this message need to be communicated with the patient directly, if the patient is not active onMyChart. If the patient is active on MyChart, they will receive notification of the communication/outcome via Entrustet. documented in this encounter Plan of Treatment Upcoming Encounters Date Type Department Care Team (Late st Contact Info) Description 02/22/2025 10:30 AM EST Office Visit Obstetrics & Gynecology [address] [place] [address] Blaze Argueta MD [address] [place] [address] documented as of this encounter [...] documented as of this encounter Care Teams Rock Breaker Relationship Specialty Start Date End Date Abner Hooper APRN [address] [place] [address] PCP - General 12/14/24 Manuela Farley DMD [address] [place] [phone] Dentist 02/22/24 Tracy Bae Dental Student Dental Absorption Operator 02/22/24 documented as of this encounter
== END 2025-02-10 23:59 ==
LOC: LAB.DROPOF 02-13 11:17
PROVIDERS: PCP Family Medicine; Visit Provider Nurse Practitioner
DX: N39.0 Urinary tract infection, site not specified (principal)
CPT/HCPCS: 87086